=== PATIENT | female | born 1930 | race Caucasian/White ===

== ENCOUNTER 2017-05-28 23:39 | Inpatient (IN) | payer MEDICARE, MEDICAID ==
[2017-05-28] MEDS ORDERED: ACETAMINOPHEN 650 MG SUPP.RECT PR ONE (23:53)
--- NOTE | 2017-05-28 23:54 | ER Document Report ---
ED General - General Chief Complaint: Fever Stated Complaint: ALTERED MENTAL STATUS Time Seen by Provider: 05/28/17 23:46 Notes: Patient is an 87-year-old female comes emergency department by EMS for chief complaint of fever and altered mental status. Family reported to EMS the patient also vomited once this afternoon but she had not been complaining of anything becoming confused. Temperature 103.5, EMS unable to give anything in route. EMS reports patient will move all limbs spontaneously and speak but she is confused and she does not follow commands. Past medical history of insulin- dependent diabetes, hypertension, GERD, hysterectomy. She lives at home with nearby. She is a full code. TRAVEL OUTSIDE OF THE [place] IN LAST 30 DAYS: No Past Medical History - General Information source: Emergency Med Personnel - Social History Smoking Status: Never Smoker Frequency of alcohol use: None Drug Abuse: None Lives with: Alone - Family rotates staying with her Family History: Hypertension - Past Medical History Cardiac Medical History: Reports: Hx Hypertension Endocrine Medical History: Reports: Hx Diabetes Mellitus Type 1 Past Surgical History: Reports: Hx Gynecologic Surgery - cysts removed., Hx Hysterectomy - Immunizations Hx Diphtheria, Pertussis, Tetanus Vaccination: No Review of Systems - Review of Systems Constitutional: See HPI EENT: No symptoms reported Cardiovascular: No symptoms reported Respiratory: No symptoms reported Gastrointestinal: See HPI Genitourinary: No symptoms reported Female Genitourinary: No symptoms reported Musculoskeletal: No symptoms reported Skin: No symptoms reported Hematologic/Lymphatic: No symptoms reported Neurological/Psychological: No symptoms reported Physical Exam - Vital signs Vitals: Pulse Resp BP Pulse Ox 90 30 H 160/100 H 97 05/28/17 23:45 05/28/17 23:45 05/28/17 23:45 05/28/17 23:45 Interpretation: Normal - General General appearance: Other - Patient will tell me her name but will not answer any other questions or follow directions, she appears confused although she is awake, she is flushed and appears ill - HEENT Head: Normocephalic, Atraumatic Eyes: Normal Conjunctiva: Normal Extraocular movements intact: Yes - Normal spontaneous movements Eyelashes: Normal Pupils: PERRL Neck: Normal - Moves neck in full range of motion spontaneously - Respiratory Respiratory status: No respiratory distress, Tachypnea. No: Labored Chest status: Nontender Breath sounds: Decreased air movement, Other - Rales and rhonchi, louder on the right, there are also decreased breath sounds on the right. No: Wheezing Chest palpation: Normal - Cardiovascular Rhythm: Regular. No: Tachycardia Heart sounds: Normal auscultation, S1 appreciated, S2 appreciated Murmur: No - Abdominal Inspection: Normal Distension: No distension Bowel sounds: Normal Tenderness: Nontender. No: Tender, Guarding - Back Back: Normal, Nontender - Extremities General upper extremity: Normal inspection, Nontender, Normal color, Normal ROM , Normal temperature General lower extremity: Normal inspection, Nontender, Normal color, Normal ROM , Normal temperature, Normal weight bearing. No: Noemí's sign - Neurological Cognition: Confused Orientation: Disoriented to place, Disoriented to time, Disoriented to events. No: Disoriented to person Mary Coma Scale Eye Opening: Spontaneous Mary Coma Scale Verbal: Confused Mary Coma Scale Motor: Obeys Commands Mary Coma Scale Total: 14 Cranial nerves: No: Facial palsy, Forehead sparing, Gaze palsy Motor strength normal: LUE, RUE, LLE, RLE Sensory: Normal - Psychological Associated symptoms: Normal affect, Normal mood - Skin Skin Temperature: Warm Skin Moisture: Dry Skin Color: Normal Course - Re-evaluation Re-evalutation: On initial examination patient is flushed, confused, spontaneously moving all extremities, attempting her airway, she has a soft abdomen, she has Rales and rhonchi on lung exam, decreased breath sounds and increased rales and rhonchi on the right side suggestive of pneumonia. Patient with slightly low oxygen saturations on room air, placed on 3 L nasal cannula and she is averaging at about 95% now. Patient is ill at this time, she will be closely monitored. Starting on broad-spectrum coverage antibiotics of Zosyn and vancomycin. GCS of 13. Family members report a cough that won't go away. They states she vomited once but they did not notice any other symptoms. On repeat examination, patient is now mentating much better, she is able to tell me her name, she is able to tell me where she is, she states that she does not have any pain anywhere including a headache. CAT scan of the head unremarkable. CBC shows leukocytosis at 20,000 with 2% bands. Elevation of neutrophils. Chest x-ray read as normal but clinically I suspect patient has pneumonia. Blood cultures pending. Lactic acid is not elevated. Patient's blood pressure , heart rate, and oxygen have remained stable. Evaluated at bedside again, patient continues to appear improved. Patient is a full code. Family members are very anxious about her status, they asked many questions at bedside which were answered. Discussed with Dr. Patton. Discussed with Dr. Becerril, internal medicine, he will admit to the [facility]. Patient and family very agreeable with this. - Vital Signs Vital signs: Temp Pulse Resp BP Pulse Ox 101.8 F H 90 11 L 141/44 H 95 05/29/17 01:52 05/28/17 23:45 05/29/17 01:01 05/29/17 01:01 05/29/17 01:01 - Laboratory Result Diagrams: 05/29/17 00:13 05/29/17 00:13 Laboratory results interpreted by me: 05/29/17 05/29/17 05/29/17 00:13 00:13 00:31 WBC 20.0 H Hgb 11.2 L Hct 33.3 L RDW 14.7 H Seg Neuts % (Manual) 84 H Band Neutrophils % 2 L Lymphocytes % (Manual) 9 L Abs Neuts (Manual) 17.2 H Sodium 136.9 L BUN 32 H Est GFR ( Amer) 54 L Est GFR (Non-Af Amer) 45 L Glucose 230 H Direct Bilirubin 0.5 H Urine Protein 100 H Urine Glucose (UA) 50 H Critical Care Note - Critical Care Note Total time excluding time spent on procedures (mins): 35 - Altered mental status , fever, pneumonia Comments: Please allow 35 minutes of critical care time for treatment of patient with altered mental status, fever, pneumonia, requiring multiple re-evaluations, treatment with oxygen, antipyretics, antibiotics, discussions with family members, consultation and admission to the hospital. Discharge - Discharge Clinical Impression: Cough Fever Qualifiers: Fever type: unspecified Qualified Code(s): R50.9 - Fever, unspecified Leukocytosis Qualifiers: Leukocytosis type: unspecified Qualified Code(s): D72.829 - Elevated white blood cell count, unspecified Altered mental status Qualifiers: Altered mental status type: unspecified Qualified Code(s): R41.82 - Altered mental status, unspecified Condition: Stable Disposition: ADMITTED INPATIENT Admitting Provider: Hospitalist Unit Admitted: [facility]
[2017-05-29] MEDS ORDERED: VANCOMYCIN HCL INJ 1000 MG VIAL IV ONE (00:20)
[2017-05-29] MEDS ORDERED: PIPERACILLIN/TAZOBACTAM 3.375 GM VIAL IV ONE (00:20)
[2017-05-29 00:29] LABS: VENOUS BLOOD BASE EXCESS -0.3 mmol/L; VENOUS BLOOD HCO3 24.9 mmol/L (20-32); VENOUS BLOOD PCO2 42.5 mmHg (35-63); VENOUS BLOOD PH 7.39 (7.30-7.42)
[2017-05-29 00:36] LABS: RED CELL DISTRIBUTION WIDTH 14.7 % (11.5-14.0)
[2017-05-29 00:39] LABS: PROTHROMBIN TIME 13.1 SEC (11.4-15.4)
[2017-05-29 00:44] LABS: HEMATOCRIT 33.3 % (36.0-47.0); HEMOGLOBIN 11.2 g/dL (12.0-15.5); HGB HCT DIFFERENCE 0.3; MEAN CORPUSCULAR HEMOGLOBIN 28.6 pg (27.0-33.4); MEAN CORPUSCULAR HGB CONC 33.6 g/dL (32.0-36.0); MEAN CORPUSCULAR VOLUME 85 fl (80-97); RED BLOOD COUNT 3.91 10^6/uL (3.72-5.28)
[2017-05-29 00:47] LABS: ALANINE AMINOTRANSFERASE 23 U/L (9-52); ALBUMIN 4.3 g/dL (3.5-5.0); ALKALINE PHOSPHATASE 71 U/L (38-126); ANION GAP 14 (5-19); ASPARTATE AMINO TRANSFERASE 31 U/L (14-36); BILIRUBIN,DIRECT 0.5 mg/dL (0.0-0.4); BILIRUBIN,TOTAL 0.8 mg/dL (0.2-1.3); BLOOD UREA NITROGEN 32 mg/dL (7-20); CALCIUM 9.4 mg/dL (8.4-10.2); CARBON DIOXIDE 23 mmol/L (22-30); CHLORIDE 100 mmol/L (98-107); CREATININE RESULT 1.14 mg/dL (0.52-1.25); GLUCOSE 230 mg/dL (75-110); POTASSIUM 4.6 mmol/L (3.6-5.0); SODIUM 136.9 mmol/L (137-145); TOTAL PROTEIN 7.5 g/dL (6.3-8.2)
[2017-05-29 01:04] LABS: BAND NEUTROPHILS % (MANUAL) 2 % (3-5); BASOPHILS % (MANUAL) 0 % (0-2); EOSINOPHILS % (MANUAL) 0 % (0-6); LYMPHOCYTES % (MANUAL) 9 % (13-45); TOTAL CELLS COUNTED 100
[2017-05-29 01:05] LABS: ANISOCYTOSIS SLIGHT; OVALOCYTES SLIGHT; POIKILOCYTOSIS SLIGHT; TEAR DROP CELLS SLIGHT; TOXIC GRANULATION 1+
--- NOTE | 2017-05-29 01:10 | RADIOLOGY REPORT (SQ) ---
EXAM DESCRIPTION: CT HEAD WITHOUT COMPLETED DATE/TIME: 05/29/2017 12:49 am REASON FOR STUDY: altered mental status COMPARISON: 01/02/2013. TECHNIQUE: Axial images acquired through the brain without intravenous contrast. Images reviewed wi th bone, brain and subdural windows. Images stored on PACS. All CT scanners at this facility use dose modulation, iterative reconstruction, and/or weight based d osing when appropriate to reduce radiation dose to as low as reasonably achievable (ALARA). [facility]: Dose Right [facility]: CareDose [facility]: Dose Right [facility]: Teradose 4D [facility]: Smart Technologies RADIATION DOSE: Up-to-date CT equipment and radiation dose reduction techniques were employed. CTDIv ol: 55.2 mGy. DLP: 1084 mGy-cm. mGy. LIMITATIONS: None. FINDINGS: VENTRICLES: Normal size and contour. CEREBRUM: No masses. No hemorrhage. No midline shift. No evidence for acute infarction. Normal gra y/white matter differentiation. Mild white matter microangiopathy. Mild cerebral volume loss. CEREBELLUM: No masses. No hemorrhage. No alteration of density. No evidence for acute infarction. EXTRAAXIAL SPACES: No fluid collections. No masses. ORBITS AND GLOBE: No intra- or extraconal masses. Normal contour of globe without masses. CALVARIUM: No fracture. PARANASAL SINUSES: No fluid or mucosal thickening. SOFT TISSUES: No mass or hematoma. OTHER: No other significant finding. IMPRESSION: No acute findings. EVIDENCE OF ACUTE STROKE: NO. COMMENT: Quality ID # [id number]: Final reports with documentation of one or more dose reduction techniques (e.g., Automated exposure control, adjustment of the mA and/or kV according to patient size, use of iterative reconstruction technique) TECHNICAL DOCUMENTATION: JOB ID: [id number] [employer]- All Rights Reserved
[2017-05-29 01:11] LABS: APPEARANCE,URINE CLEAR; BILIRUBIN,URINE NEGATIVE (NEGATIVE); GLUCOSE, URINE 50 mg/dL (NEGATIVE); KETONES,URINE NEGATIVE (NEGATIVE); LEUKOCYTE ESTERASE,URINE NEGATIVE (NEGATIVE); NITRITE,URINE NEGATIVE (NEGATIVE); PROTEIN,URINE 100 mg/dL (NEGATIVE); UROBILINOGEN,URINE NEGATIVE mg/dL (<2.0)
--- NOTE | 2017-05-29 01:53 | RADIOLOGY REPORT (SQ) ---
EXAM DESCRIPTION: CHEST SINGLE VIEW COMPLETED DATE/TIME: 05/29/2017 12:52 am REASON FOR STUDY: AMS, fever, rales on exam COMPARISON: 03/19/2016. EXAM PARAMETERS: NUMBER OF VIEWS: One view. TECHNIQUE: Single frontal radiographic view of the chest acquired. RADIATION DOSE: NA LIMITATIONS: None. FINDINGS: LUNGS AND PLEURA: Mild interstitial markings. MEDIASTINUM AND HILAR STRUCTURES: No masses. Contour normal. HEART AND VASCULAR STRUCTURES: Heart normal in size. Small atherosclerosis. BONES: No acute findings. [id number] osteoarthritis. HARDWARE: None in the chest. OTHER: No other significant finding. IMPRESSION: No acute cardiopulmonary findings. TECHNICAL DOCUMENTATION: JOB ID: [id number]
[2017-05-29] MEDS ORDERED: GLUCAGON,HUMAN RECOMB 1 MG INJ IM PRN (04:16)
[2017-05-29] MEDS ORDERED: DEXTROSE 50%-WATER 25 GM/50 ML DISP.SYRIN IV PRN ×2 (04:16)
[2017-05-29] MEDS ORDERED: DEXTROSE 40% GEL 15 GM TUBE PO PRN ×2 (04:16)
[2017-05-29] MEDS ORDERED: PROMETHAZINE HCL 25 MG TABLET PO PRN (04:19)
[2017-05-29] MEDS ORDERED: ACETAMINOPHEN 325 MG TABLET PO PRN (04:19)
[2017-05-29] MEDS ORDERED: NORMAL SALINE 1000 ML 500 ML IV PRN (04:21)
[2017-05-29] MEDS ORDERED: IPRATROPIUM/ALBUTEROL 0.5-2.5 MG/3 ML AMPUL NEB PRN (04:21)
[2017-05-29] MEDS ORDERED: PHARMACY COMMUNICATION ORDER MC SCH (04:30)
[2017-05-29] MEDS ORDERED: VANCOMYCIN HCL 0 MG in DEXTROSE 5%-WATER 250 ML IV NR (04:30)
--- NOTE | 2017-05-29 04:42 | PDOC H&P ---
History of Present Illness Admission Date/PCP: 05/29/17 02:23 Edd Patient complains of: Fever confusion History of Present Illness: MERCEDES ZAPATA is a 87 year old female with underlying type 2 diabetes mellitus and hypertension, quite mentally and physically active, living alone, but with close family support, brought to the emergency room by EMS at the request of family for above issues. Patient has been discussed with emergency room physician who evaluated the patient. Patient is globally disoriented and is able to provide no history whatsoever in terms of acute or chronic events, review of systems, personal habits, family history, etc. daughter and son-in-law are present, and are quite helpful and informative. No old inpatient records available for review. Patient was in her usual state of both mental and physical health Thursday evening. However, during the day on the , she was noted to have single episode of vomiting, along with associated confusion. EMS was called; temperature 103.5 on arrival. Upon arrival in our emergency room, patient had the overall appearance of being significantly ill. She has improved quite a bit with treatment so far, including antibiotics, but is still not back to baseline, according to family. Initial thoughts were for possible pneumonia, due to somewhat coarse breath sounds on physical exam. However, discussion with family revealed patient carries a diagnosis of chronic bronchitis, and has been to see a number of pulmonologists related to same. Her apparently was a smoker. Patient herself does not use tobacco, alcohol, or illicit drugs. Examination did reveal subtle but still present cellulitis involving the lower half of her right lower extremity, primarily anteriorly and laterally. Patient denies any knowledge of trauma to the area. She is noted to have mild edema of the lower half of the right lower extremity, including distal calf and forte, along with ankle and foot. Family states that she does occasionally have mild swelling of her lower extremities. Dictation via voice recognition software. Laboratory results are listed in [facility] and are reviewed. X-ray summary results are listed below, with full report(s) reviewed. . EKG reviewed and compared to prior tracing from 19 March of last year. Social history/personal habits: . Lives alone. Quite mentally and physically active. Retired. Personal habits as noted above. Allergies/adverse reactions are listed in [facility] and are reviewed. Family not certain if she has ever taken morphine, Percocet or oxycodone. Home medications initially autopopulated into [id number] may not accurately reflect patient's true medications, dosages, and/or frequencies. electronic service technician to reconcile medications. Bottle review performed. REVIEW OF SYSTEMS: See history and present illness. No further information available this point in time. PHYSICAL EXAMINATION: 79.4 kg. Height is not recorded on the chart. Blood pressure 123/49. Pulse 69 and regular. 98% saturation on room air. Respirations are 22 and unlabored. Temperature 101.8. Slightly overweight otherwise well-nourished well-developed female appearing approximately her stated age. Initially asleep, but does awaken fairly easily. Somewhat fatigued appearance. Daughter and son-in-law are present at her side. Skin is warm and dry. No grossly obvious evidence of rash in areas of skin examined. No subcutaneous nodules palpated. See comments under "extremities" below. ENT: Perhaps mildly hard of hearing to normal conversation. Tongue midline on protrusion pink and slightly tacky. Eyes: No scleral icterus. Pupils equal and reactive to light at 4 mm. [place] conjunctivae. No raccoon eyes. Neck is supple and nontender to gentle active range of motion and palpation. Midline trachea. No palpable thyroid nodule mass enlargement or tenderness. Lymphatic: No palpable cervical or clavicular nodes. Neck and lymphatic exams limited by patient body habitus. Psychiatric: Difficult to evaluate due to her current mental status. Does not answer all questions. Slowly looking about the room, but rarely speaks. Lungs: Auscultation reveals equal breath sounds bilaterally. No use of accessory respiratory muscles. Faint coarse breath sounds in the right base. Cardiovascular: Heart regular rate and rhythm, without gallop murmur or rub. No carotid or abdominal aortic bruits. No left ankle or pedal edema. Faintly palpable dorsalis pedis pulses. Abdomen:soft slightly distended nontender with positive bowel sounds. Unable to adequately evaluate abdomen for masses or organomegaly due to distention. Extremities: Feet are warm and dry. No calf tenderness to compression. No grossly obvious visual evidence of left calf swelling. Gentle manipulation of lower extremities fails to reveal any obvious evidence of injury or instability to knees hips or ankles. Examination of the right lower extremity reveals mild slightly pitting edema involving the lower third of the right lower extremity extending onto the ankle and dorsum of the foot. This area is also involved with mild inflammation and warmth. No tenderness. No crepitus fluctuance or expressible discharge. No specific skin entrance site. Neurologic: Patellar reflexes absent. Absent Babinski. Light touch cannot be adequately evaluated due to her current mental status.. Dorsiflexion and plantarflexion of feet 5 / 5 and symmetric. Past Medical History Cardiac Medical History: Reports: Hypertension Denies: Atrial Fibrillation, Congestive Heart Failure, Coronary Artery Disease, DVT, Myocardial Infarction, Hyperlipidema, Pulmonary Embolism Pulmonary Medical History: Reports: Bronchitis - Chronic Denies: Asthma, Chronic Obstructive Pulmonary Disease (COPD), Sleep Apnea EENT Medical History: Reports: Eyes - Glasses Denies: Ears, Throat Neurological Medical History: Denies: Hemorrhagic CVA, Ischemic CVA, Seizures Endocrine Medical History: Reports: Diabetes Mellitus Type 2 Denies: Diabetes Mellitus Type 1, Hyperthyroidism, Hypothyroidism Malignancy Medical History: Reports: Other - Uterine cancer status post hysterectomy many years ago. GI Medical History: Denies: Cirrhosis, Gastroesophageal Reflux Disease, Hepatitis, Peptic Ulcer Disease Musculoskeltal Medical History: Denies: Arthritis Skin Medical History: Reports: None Psychiatric Medical History: Denies: Depression, General Anxiety Disorder, Substance Abuse, Tobacco Dependency Hematology: Reports: None Infectious Medical History: Denies: Clostridium Difficile, Hepatitis B, Hepatitis C, Methicillin- Resistant Staph Aureus Past Surgical History Past Surgical History: Reports: Herniorrhaphy, Hysterectomy Social History Information Source: Relative - Daughter, Emergency Med Personnel, [facility] Records Lives with: Alone - Family rotates staying with her Smoking Status: Never Smoker Frequency of Alcohol Use: None Drugs: None - Advance Directive Resuscitation Status: Full Code Surrogate healthcare decision maker:: Daughter or son Family History Family History: Hypertension Parental Family History Reviewed: Yes - Uncertain cause of mother's ; father may have of seizure. Children Family History Reviewed: Yes - Healthy Sibling(s) Family History Reviewed.: Yes - Several surviving siblings; uncertain health status Medication/Allergy Home Medications: RX: Olmesartan/Hydrochlorothiazide [Olmesartan-Hctz 40-25 mg Tab] 1 tab PO DAILY 05/29/17 RX: Sitagliptin Phosphate [Januvia 50 mg Tablet] 50 mg PO DAILY 05/29/17 Levofloxacin [Levaquin 750 mg Tablet] 750 mg PO Q48H #7 tab 05/31/17 RX: Meloxicam [Mobic] 7.5 mg PO DAILY PRN #0 05/31/17 Allergies/Adverse Reactions: codeine Adverse Reaction (Intermediate, Verified 05/29/17 03:22) Nausea Physical Exam Vital Signs: Temp Pulse Resp BP Pulse Ox 101.8 F H 68 22 H 112/58 L 98 05/29/17 04:02 05/29/17 04:02 05/29/17 04:02 05/29/17 04:02 05/29/17 04:02 Results Impressions: Chest X-Ray 05/28/17 23:52 IMPRESSION: No acute cardiopulmonary findings. Head CT 05/28/17 23:53 IMPRESSION: No acute findings. EVIDENCE OF ACUTE STROKE: NO. Assessment & Plan - Diagnosis (1) Acute encephalopathy Is this a current diagnosis for this admission?: Yes Plan: Should clear with time and treatment of her infection. (2) Cellulitis of right lower leg Is this a current diagnosis for this admission?: Yes Plan: Ancef and intravenous vancomycin; pharmacy to assist with dosing. Elevate lower extremities. I have strongly encouraged patient not to get out of bed without notifying staff , to avoid a fall with injury. Knee high SCD, left lower extremity only, for DVT prophylaxis, along with subcutaneous heparin. Daughter and son-in-law understand confusion may worsen while in the hospital. Impression and plans were discussed with daughter and son-in-law, both of whom concur. Time spent in evaluation and management of patient: 76 minutes. (3) CKD (chronic kidney disease) stage 3, GFR 30-59 ml/min Is this a current diagnosis for this admission?: Yes (4) Diabetes mellitus type 2 in obese Is this a current diagnosis for this admission?: Yes (5) HTN (hypertension) Qualifiers: Hypertension type: essential hypertension Qualified Code(s): I10 - Essential (primary) hypertension Is this a current diagnosis for this admission?: Yes Plan: Resume home medications as appropriate once these have been determined and reviewed. - Time Time Spent: Greater than 70 Minutes Anticipated discharge: Home Within: Other - Inpatient Certification Based on my medical assessment, after consideration of the patient's comorbidities, presenting symptoms, or acuity I expect that the services needed warrant INPATIENT care.: Yes I certify that my determination is in accordance with my understanding of Medicare's requirements for reasonable and necessary INPATIENT services [42 CFR 412.3e].: Yes Medical Necessity: Need Close Monitoring Due to Risk of Patient Decompensation, Need for IV Antibiotics, Risk of Complication if Not Cared For in Hospital Post Hospital Care: D/C or Transfer Summary
[2017-05-29] MEDS ORDERED: CEFAZOLIN 1 GM/D5W RTU 1 GM/50 ML RTUPB IV ONE (05:00)
[2017-05-29] MEDS ORDERED: CEFAZOLIN 1 GM/D5W RTU 1 GM/50 ML RTUPB IV SCH ×2 (06:00→14:00)
--- NOTE | 2017-05-29 07:18 | EKG REPORT ---
SEVERITY:- ABNORMAL ECG - ACCELERATED JUNCTIONAL RHYTHM RBBB AND LPFB : Confirmed by: Deepak Putnam MD 29-May-2017 07:18:05
[2017-05-29 07:46] LABS: HEMATOCRIT 29.8 % (36.0-47.0); HEMOGLOBIN 10.1 g/dL (12.0-15.5); HGB HCT DIFFERENCE 0.5; MEAN CORPUSCULAR HEMOGLOBIN 28.8 pg (27.0-33.4); MEAN CORPUSCULAR HGB CONC 33.8 g/dL (32.0-36.0); MEAN CORPUSCULAR VOLUME 85 fl (80-97); RED BLOOD COUNT 3.49 10^6/uL (3.72-5.28); RED CELL DISTRIBUTION WIDTH 14.9 % (11.5-14.0); WHITE BLOOD COUNT 27.1 10^3/uL (4.0-10.5)
[2017-05-29 08:02] LABS: ANION GAP 16 (5-19); BLOOD UREA NITROGEN 33 mg/dL (7-20); CARBON DIOXIDE 22 mmol/L (22-30); CHLORIDE 99 mmol/L (98-107); CREATININE RESULT 1.42 mg/dL (0.52-1.25); GLUCOSE 183 mg/dL (75-110); POTASSIUM 4.4 mmol/L (3.6-5.0); SODIUM 137.2 mmol/L (137-145)
[2017-05-29 08:20] LABS: BAND NEUTROPHILS % (MANUAL) 8 % (3-5); BASOPHILS % (MANUAL) 0 % (0-2); EOSINOPHILS % (MANUAL) 0 % (0-6)
[2017-05-29 08:22] LABS: LYMPHOCYTES % (MANUAL) 1 % (13-45); TOTAL CELLS COUNTED 100
[2017-05-29 09:17] LABS: OVALOCYTES 1+; PLATELET CLUMPS PRESENT; POLYCHROMASIA SLIGHT; TEAR DROP CELLS SLIGHT; TOXIC GRANULATION SLIGHT
[2017-05-29 09:18] LABS: ANISOCYTOSIS SLIGHT; POIKILOCYTOSIS 1+; ROULEAUX SLIGHT; STOMATOCYTES SLIGHT
[2017-05-29] MEDS ORDERED: NORMAL SALINE 1000 ML 1,000 ML IV PRN (10:24)
[2017-05-29] MEDS ORDERED: IMIPENEM/CILASTATIN SODIUM INJ 500 MG VIAL IV SCH (10:30)
--- NOTE | 2017-05-29 11:45 | RADIOLOGY REPORT (SQ) ---
EXAM DESCRIPTION: KUB/ABDOMEN (SINGLE VIEW) COMPLETED DATE/TIME: 05/29/2017 11:00 am REASON FOR STUDY: nausea and vomiting COMPARISON: CT abdomen and pelvis 01/02/2013 NUMBER OF VIEWS: One view. TECHNIQUE: Supine radiographic image of the abdomen acquired. LIMITATIONS: None. FINDINGS: BOWEL GAS PATTERN: Moderate stool in the descending colon. Otherwise unremarkable bowel g as pattern. Stomach decompressed CALCIFICATIONS: No suspicious calcifications. SOFT TISSUES: No gross mass or suggestion of organomegaly. HARDWARE: Old very umbilical anterior abdominal wall surgical kayode. Surgical clips just ventral t o the iliac bifurcation. BONES: Osteoporotic with diffuse degenerative change. OTHER: No other significant finding. IMPRESSION: Grossly nonobstructive bowel gas pattern. Moderate stool in the descending colon. TECHNICAL DOCUMENTATION: JOB ID: [id number] [employer]- All Rights Reserved
[2017-05-29] MEDS ORDERED: IMIPENEM IV SCH (12:00)
[2017-05-29] MEDS ORDERED: CILASTATIN SODIUM IV SCH (12:00)
[2017-05-29] MEDS ORDERED: NORMAL SALINE IV SCH (12:00)
[2017-05-29] MEDS: HEPARIN SOD (PORCINE) 5,000 UNIT/ML 1 ML SYRINGE SUBCUT SCH ×2 (12:41→21:44)
[2017-05-29] MEDS: DOCUSATE SODIUM 100 MG CAPSULE PO SCH ×2 (12:44→17:58)
[2017-05-29] MEDS: IMIPENEM IV SCH ×2 (12:47→17:58)
[2017-05-29] MEDS: CILASTATIN SODIUM IV SCH ×2 (12:47→17:58)
[2017-05-29] MEDS: DEXTROSE 5% IV SCH ×2 (12:47→17:58)
[2017-05-29] MEDS: WATER IV SCH ×2 (12:47→17:58)
[2017-05-30] MEDS: CILASTATIN SODIUM IV SCH ×4 (00:36→17:28)
[2017-05-30] MEDS: DEXTROSE 5% IV SCH ×4 (00:36→17:28)
[2017-05-30] MEDS: WATER IV SCH ×4 (00:36→17:28)
[2017-05-30] MEDS: IMIPENEM IV SCH ×4 (00:36→17:28)
[2017-05-30] MEDS: INSULIN LISPRO 100 UNIT/ML 3 ML VIAL SUBCUT PRN ×4 (01:08→22:43)
[2017-05-30 06:44] LABS: HEMATOCRIT 28.5 % (36.0-47.0); HEMOGLOBIN 9.5 g/dL (12.0-15.5); MEAN CORPUSCULAR HEMOGLOBIN 28.7 pg (27.0-33.4); MEAN CORPUSCULAR HGB CONC 33.4 g/dL (32.0-36.0); MEAN CORPUSCULAR VOLUME 86 fl (80-97); RED BLOOD COUNT 3.32 10^6/uL (3.72-5.28); RED CELL DISTRIBUTION WIDTH 15.1 % (11.5-14.0); WHITE BLOOD COUNT 14.1 10^3/uL (4.0-10.5)
[2017-05-30 06:55] LABS: ANION GAP 8 (5-19); BLOOD UREA NITROGEN 32 mg/dL (7-20); CALCIUM 8.6 mg/dL (8.4-10.2); CARBON DIOXIDE 25 mmol/L (22-30); CHLORIDE 105 mmol/L (98-107); CREATININE RESULT 1.37 mg/dL (0.52-1.25); GLUCOSE 147 mg/dL (75-110); SODIUM 137.9 mmol/L (137-145)
[2017-05-30] MEDS: HEPARIN SOD (PORCINE) 5,000 UNIT/ML 1 ML SYRINGE SUBCUT SCH ×2 (09:18→22:43)
[2017-05-30] MEDS: DOCUSATE SODIUM 100 MG CAPSULE PO SCH ×2 (09:18→17:28)
[2017-05-30] MEDS: SITAGLIPTIN PHOSPHATE 50 MG TABLET PO SCH (09:18)
[2017-05-30] MEDS ORDERED: NORMAL SALINE 1000 ML 1,000 ML IV PRN (14:09)
--- NOTE | 2017-05-30 14:15 | PDOC PROGRESS REPORT ---
Subjective Progress Note for:: 05/30/17 Subjective:: Family at bedside and reportedly mental status back to baseline. Patient denies any shortness of breath, no cough or chest congestion, no chills or fever at this time. Lower extremity swelling on the right reportedly improved. No nausea or vomiting, no diarrhea. Abdominal x-ray looks once the patient. Physical Exam Vital Signs: Temp Pulse Resp BP Pulse Ox 97.4 F 71 18 158/48 H 94 05/30/17 11:01 05/30/17 11:01 05/30/17 11:01 05/30/17 11:01 05/30/17 11:01 Intake & Output 05/29/17 05/30/17 05/31/17 06:59 06:59 06:59 Intake Total 200 2714 574 Output Total 0 1100 300 Balance 200 1614 274 Weight 77.1 kg 77.1 kg General appearance: PRESENT: no acute distress, cooperative Head exam: PRESENT: normocephalic Eye exam: PRESENT: EOMI Mouth exam: PRESENT: moist, neck supple Neck exam: ABSENT: JVD Respiratory exam: PRESENT: clear to auscultation adela. ABSENT: rhonchi, wheezes Cardiovascular exam: PRESENT: RRR. ABSENT: gallop GI/Abdominal exam: PRESENT: soft. ABSENT: distended, tenderness Extremities exam: PRESENT: other - Trace pretibial edema on the left, trace to + 1 edema on the right minimal redness Neurological exam: PRESENT: alert, awake, oriented to situation Skin exam: PRESENT: dry, warm. ABSENT: cyanosis Results Laboratory Results: 05/30/17 06:33 05/30/17 06:33 05/30/17 05/30/17 06:33 06:33 WBC 14.1 H RBC 3.32 L Hgb 9.5 L Hct 28.5 L MCV 86 MCH 28.7 MCHC 33.4 RDW 15.1 H Plt Count 213 Sodium 137.9 Potassium 4.0 Chloride 105 Carbon Dioxide 25 Anion Gap 8 BUN 32 H Creatinine 1.37 H Est GFR ( Amer) 44 L Est GFR (Non-Af Amer) 36 L Glucose 147 H Calcium 8.6 Impressions: Chest X-Ray 05/28/17 23:52 IMPRESSION: No acute cardiopulmonary findings. Head CT 05/28/17 23:53 IMPRESSION: No acute findings. EVIDENCE OF ACUTE STROKE: NO. KUB X-Ray 05/29/17 00:00 IMPRESSION: Grossly nonobstructive bowel gas pattern. Moderate stool in the descending colon. Assessment & Plan - Diagnosis (1) Altered mental status Qualifiers: Altered mental status type: unspecified Qualified Code(s): R41.82 - Altered mental status, unspecified Is this a current diagnosis for this admission?: Yes (2) Cellulitis of right lower leg Is this a current diagnosis for this admission?: Yes (3) Chronic bronchitis Qualifiers: Chronic bronchitis type: unspecified Qualified Code(s): J42 - Unspecified chronic bronchitis Is this a current diagnosis for this admission?: Yes (4) CKD (chronic kidney disease) stage 3, GFR 30-59 ml/min Is this a current diagnosis for this admission?: Yes (5) Diabetes mellitus type 2 in obese Is this a current diagnosis for this admission?: Yes (6) HTN (hypertension) Qualifiers: Hypertension type: essential hypertension Qualified Code(s): I10 - Essential (primary) hypertension Is this a current diagnosis for this admission?: Yes (7) Anemia of chronic disease Is this a current diagnosis for this admission?: Yes - Time Time Spent with patient: 25-34 minutes - Plan Summary Plan Summary: Antibiotic changed to Primaxin due to increasing creatinine. Continue current medication. Decrease IV fluids. Begin physical therapy. Continue supportive care.
[2017-05-30] MEDS ORDERED: POLYETHYLENE GLYCOL 3350 POWDER 17 GM/1 PACKET PO ONE (15:00)
[2017-05-31] MEDS: DEXTROSE 5% IV SCH ×3 (00:33→13:05)
[2017-05-31] MEDS: IMIPENEM IV SCH ×3 (00:33→13:05)
[2017-05-31] MEDS: CILASTATIN SODIUM IV SCH ×3 (00:33→13:05)
[2017-05-31] MEDS: WATER IV SCH ×3 (00:33→13:05)
[2017-05-31] MEDS: HEPARIN SOD (PORCINE) 5,000 UNIT/ML 1 ML SYRINGE SUBCUT SCH (09:30)
[2017-05-31] MEDS: SITAGLIPTIN PHOSPHATE 50 MG TABLET PO SCH (09:30)
[2017-05-31] MEDS: DOCUSATE SODIUM 100 MG CAPSULE PO SCH (09:31)
[2017-05-31] MEDS ORDERED: POLYETHYLENE GLYCOL 3350 POWDER 17 GM/1 PACKET PO SCH (10:00)
[2017-05-31 12:41] VITALS: BP 125/41
[2017-05-31] MEDS ORDERED: LEVOFLOXACIN 750 MG TABLET PO ONE (15:00)
--- NOTE | 2017-05-31 17:28 | PDOC DISCHARGE SUMMARY ---
General - Admit/Disc Date/PCP Admission Date/Primary Care Provider: 05/29/17 04:21 Discharge Date: 05/31/17 - Discharge Diagnosis (1) Altered mental status Is this a current diagnosis for this admission?: Yes (2) Cellulitis of right lower leg Is this a current diagnosis for this admission?: Yes (3) Chronic bronchitis Is this a current diagnosis for this admission?: Yes (4) CKD (chronic kidney disease) stage 3, GFR 30-59 ml/min Is this a current diagnosis for this admission?: Yes (5) Diabetes mellitus type 2 in obese Is this a current diagnosis for this admission?: Yes (6) HTN (hypertension) Is this a current diagnosis for this admission?: Yes (7) Anemia of chronic disease Is this a current diagnosis for this admission?: Yes - Additional Information Resuscitation Status: Full Code Discharge Diet: Cardiac, Diabetic Discharge Activity: Activity As Tolerated, Balance Activity w/Rest, Slowly Increase Activity Home Medications: Olmesartan/Hydrochlorothiazide [Olmesartan-Hctz 40-25 mg Tab] 1 tab PO DAILY Sitagliptin Phosphate [Januvia 50 mg Tablet] 50 mg PO DAILY 05/29/17 Levofloxacin [Levaquin 750 mg Tablet] 750 mg PO Q48H #7 tab 05/31/17 Meloxicam [Mobic] 7.5 mg PO DAILY PRN #0 05/31/17 Additional Information: Follow-up final report of culture outpatient with primary care physician. Return to the emergency room if symptoms recur. History of Present Illness Patient complains of: Change in mental status. History of Present Illness: MERCEDES ZAPATA is a 87 year old female with underlying type 2 diabetes mellitus and hypertension, quite mentally and physically active, living alone, but with close family support, brought to the emergency room by EMS at the request of family for above issues. Patient has been discussed with emergency room physician who evaluated the patient. Patient is globally disoriented and is able to provide no history whatsoever in terms of acute or chronic events, review of systems, personal habits, family history, etc. daughter and son-in-law are present, and are quite helpful and informative. No old inpatient records available for review. Patient was in her usual state of both mental and physical health Thursday evening. However, during the day on the 21st, she was noted to have single episode of vomiting, along with associated confusion. EMS was called; temperature 103.5 on arrival. Upon arrival in our emergency room, patient had the overall appearance of being significantly ill. She has improved quite a bit with treatment so far, including antibiotics, but is still not back to baseline, according to family. Initial thoughts were for possible pneumonia, due to somewhat coarse breath sounds on physical exam. However, discussion with family, patient carries a diagnosis of chronic bronchitis, and has been to see a number of product assembler related to same. Her apparently was a smoker. Patient herself does not use tobacco, alcohol, or illicit drugs. Examination did reveal subtle but still present cellulitis involving the lower half of her right lower extremity, primarily anteriorly and laterally. Patient denies any knowledge of trauma to the area. She is noted to have mild edema of the lower half of the right lower extremity, including distal calf and forte, along with ankle and foot. Family states that she does occasionally have mild swelling of her lower extremities. For details please refer to history and physical examination performed by the admitting physician. Hospital Course Hospital Course: The patient was admitted to telemetry. The patient was hydrated with intravenous fluids. Broad-spectrum antibiotic was started to cover for cellulitis. Patient had chronic bronchitis but no reported flareup of symptoms were noted. Blood culture was performed and grew group B Streptococcus. The patient subsequently improved after 48 hours of treatment. Patient was more awake and alert and able to respond. She was referred to physical therapy and was able to participate. No respiratory symptoms were reported nor any discomfort respiratory lopez were reported. Likely the underlying cause of infection is her cellulitis on the leg. She has a KUB that did not show any impaction. The rest of the hospital stays unremarkable. Patient was transitioned to oral Levaquin and eventually will was discharged home with above instructions. Home health was arranged for home physical therapy. Physical Exam Vital Signs: Temp Pulse Resp BP Pulse Ox 98.8 F 79 18 125/41 L 97 05/31/17 12:39 05/31/17 12:39 05/31/17 12:39 05/31/17 12:39 05/31/17 12:39 Intake & Output 05/30/17 05/31/17 06/01/17 06:59 06:59 06:59 Intake Total 2714 2924 600 Output Total 1100 1000 400 Balance 1614 1924 200 Weight 77.1 kg 81.4 kg General appearance: PRESENT: no acute distress, cooperative Head exam: PRESENT: normocephalic Eye exam: PRESENT: EOMI Mouth exam: PRESENT: moist, neck supple Neck exam: ABSENT: JVD Respiratory exam: PRESENT: clear to auscultation adela. ABSENT: rhonchi, wheezes Cardiovascular exam: PRESENT: RRR. ABSENT: gallop GI/Abdominal exam: PRESENT: soft. ABSENT: distended, tenderness Extremities exam: ABSENT: pedal edema Neurological exam: PRESENT: alert, awake, oriented to situation Skin exam: PRESENT: dry, warm. ABSENT: cyanosis Results Laboratory Results: 05/30/17 06:33 05/30/17 06:33 Impressions: Chest X-Ray 05/28/17 23:52 IMPRESSION: No acute cardiopulmonary findings. Head CT 05/28/17 23:53 IMPRESSION: No acute findings. EVIDENCE OF ACUTE STROKE: NO. KUB X-Ray 05/29/17 00:00 IMPRESSION: Grossly nonobstructive bowel gas pattern. Moderate stool in the descending colon. Qualifiers PATEINT BEING DISCHARGED WITH ANY OF THE FOLLOWING DIAGNOSIS?: No Plan Discharge Plan: Follow-up with primary care physician in 1 week. Time Spent: Less than 30 Minutes
[2017-05-31] MEDS ORDERED: IMIPENEM/CILASTATIN SODIUM 250 MG in NORMAL SALINE 100 ML IV SCH (18:00)
[2017-05-31] MEDS ORDERED: NORMAL SALINE IV SCH (18:00)
[2017-05-31] MEDS ORDERED: CILASTATIN SODIUM IV SCH (18:00)
[2017-05-31] MEDS ORDERED: IMIPENEM IV SCH (18:00)
== END 2017-05-31 14:30 | disposition home health service (06) | DRG 602 ==
LOC: ER 23:39 → EH 05-29 02:23 → UNDOADMIN 05-29 02:23 → EH 05-29 04:21 → 3S 05-29 04:42 → EH 05-29 04:42
PROVIDERS: ADMIT Family Medicine; ATTEND Family Medicine
DX: L03.115 Cellulitis of right lower limb (principal); G93.40 Encephalopathy, unspecified; I12.9 Hypertensive chronic kidney disease with stage 1 through stage 4 chronic kidney disease, or unspecified chronic kidney disease; N18.3 Chronic kidney disease, stage 3 (moderate); B95.1 Streptococcus, group B, as the cause of diseases classified elsewhere; E11.22 Type 2 diabetes mellitus with diabetic chronic kidney disease; K21.9 Gastro-esophageal reflux disease without esophagitis; J42 Unspecified chronic bronchitis; G47.30 Sleep apnea, unspecified; Z77.22 Contact with and (suspected) exposure to environmental tobacco smoke (acute) (chronic); E66.9 Obesity, unspecified; D64.9 Anemia, unspecified; Z79.4 Long term (current) use of insulin; Z90.710 Acquired absence of both cervix and uterus; Z82.49 Family history of ischemic heart disease and other diseases of the circulatory system; Z88.6 Allergy status to analgesic agent; Z85.42 Personal history of malignant neoplasm of other parts of uterus
CPT/HCPCS: 36415; 51701; 70450; 71010; 74000; 80048; 80053; 81001; 82803; 82962; 83605; 83735; 85025; 85027; 85610; 87040; 87077; 87086; 87186; 93005; 93010; 96365; 96375; 99291; G8978-GP; G8979-GP; J0690; J0743; J1644; J1815; J2543; J3370; J3490; J7030

== ENCOUNTER 2017-09-30 07:54 | Inpatient (IN) | payer MEDICARE, MEDICAID ==
[2017-09-30] MEDS ORDERED: NORMAL SALINE 1000 ML 1,000 ML IV ONE (08:13)
[2017-09-30] MEDS ORDERED: ONDANSETRON HCL INJ/PF 4 MG/2 ML SDV IV ONE (08:14)
[2017-09-30] MEDS ORDERED: IPRATROPIUM/ALBUTEROL 0.5-2.5 MG/3 ML AMPUL NEB ONE (08:27)
--- NOTE | 2017-09-30 08:48 | EKG REPORT ---
SEVERITY:- ABNORMAL ECG - SINUS TACHYCARDIA RIGHT BUNDLE BRANCH BLOCK : Confirmed by: Domonique Iqbal MD 30-Sep-2017 08:47:47
[2017-09-30 09:16] LABS: HEMOGLOBIN 11.1 g/dL (12.0-15.5); MEAN CORPUSCULAR HEMOGLOBIN 28.9 pg (27.0-33.4); MEAN CORPUSCULAR HGB CONC 33.5 g/dL (32.0-36.0); MEAN CORPUSCULAR VOLUME 86 fl (80-97); PLATELET COUNT 310 10^3/uL (150-450); RED BLOOD COUNT 3.84 10^6/uL (3.72-5.28); RED CELL DISTRIBUTION WIDTH 14.9 % (11.5-14.0); WHITE BLOOD COUNT 18.6 10^3/uL (4.0-10.5)
[2017-09-30 09:17] LABS: VENOUS BLOOD BASE EXCESS 0.3 mmol/L; VENOUS BLOOD HCO3 24.5 mmol/L (20-32); VENOUS BLOOD PCO2 37.8 mmHg (35-63); VENOUS BLOOD PH 7.43 (7.30-7.42)
[2017-09-30 09:22] LABS: INTERNATIONAL RATION (INR) 1.05; PROTHROMBIN TIME 14.5 SEC (11.4-15.4)
--- NOTE | 2017-09-30 09:30 | RADIOLOGY REPORT (SQ) ---
EXAM DESCRIPTION: CHEST SINGLE VIEW COMPLETED DATE/TIME: 09/30/2017 9:15 am REASON FOR STUDY: cough fever COMPARISON: 05/29/2017, 03/19/2016 chest films EXAM PARAMETERS: NUMBER OF VIEWS: One view. TECHNIQUE: Single frontal radiographic view of the chest acquired. RADIATION DOSE: NA LIMITATIONS: None. FINDINGS: LUNGS AND PLEURA: Patchy airspace disease right upper lobe worrisome for early or developi ng pneumonia. Left lung clear. No pleural effusions. No pneumothorax. MEDIASTINUM AND HILAR STRUCTURES: No masses. Contour normal. HEART AND VASCULAR STRUCTURES: Heart normal in size. Normal vasculature. BONES: No acute findings. HARDWARE: None in the chest. OTHER: No other significant finding. IMPRESSION: Minimal right upper lobe airspace disease worrisome for early or developing pneumonia. TECHNICAL DOCUMENTATION: JOB ID: [id number] [employer]- All Rights Reserved
[2017-09-30 09:35] LABS: ABSOLUTE LYMPHOCYTES# (MANUAL) 0.7 10^3/uL (0.5-4.7); ABSOLUTE MONOCYTES # (MANUAL) 1.1 10^3/uL (0.1-1.4); ABSOLUTE NEUTROPHILS# (MANUAL) 16.7 10^3/uL (1.7-8.2); BAND NEUTROPHILS % (MANUAL) 9 % (3-5); BASOPHILS % (MANUAL) 0 % (0-2); EOSINOPHILS % (MANUAL) 0 % (0-6); LYMPHOCYTES % (MANUAL) 4 % (13-45); MONOCYTES % (MANUAL) 6 % (3-13); SEGMENTED NEUTROPHILS % (MAN) 81 % (42-78); TOTAL CELLS COUNTED 100
[2017-09-30 09:36] LABS: ANISOCYTOSIS SLIGHT; OVALOCYTES SLIGHT; POIKILOCYTOSIS SLIGHT
[2017-09-30 09:37] LABS: PLATELET COMMENT ADEQUATE
[2017-09-30] MEDS ORDERED: LEVOFLOXACIN 500 MG/D5W RTU 500 MG/100 ML RTUPB IV ONE (09:39)
[2017-09-30 09:43] LABS: ALANINE AMINOTRANSFERASE 22 U/L (9-52); ALKALINE PHOSPHATASE 71 U/L (38-126); ANION GAP 14 (5-19); ASPARTATE AMINO TRANSFERASE 23 U/L (14-36); BILIRUBIN,DIRECT 0.3 mg/dL (0.0-0.4); BILIRUBIN,TOTAL 1.1 mg/dL (0.2-1.3); BLOOD UREA NITROGEN 29 mg/dL (7-20); CALCIUM 9.4 mg/dL (8.4-10.2); CARBON DIOXIDE 21 mmol/L (22-30); CHLORIDE 101 mmol/L (98-107); GLUCOSE 204 mg/dL (75-110); POTASSIUM 4.1 mmol/L (3.6-5.0); SODIUM 135.8 mmol/L (137-145)
[2017-09-30 10:38] LABS: APPEARANCE,URINE SLIGHTLY-CLOUDY; BILIRUBIN,URINE NEGATIVE (NEGATIVE); COLOR,URINE YELLOW; GLUCOSE, URINE 50 mg/dL (NEGATIVE); KETONES,URINE NEGATIVE (NEGATIVE); LEUKOCYTE ESTERASE,URINE MODERATE (NEGATIVE); NITRITE,URINE NEGATIVE (NEGATIVE); PROTEIN,URINE 30 mg/dL (NEGATIVE); URINE SPECIFIC GRAVITY 1.011; UROBILINOGEN,URINE NEGATIVE mg/dL (<2.0)
--- NOTE | 2017-09-30 10:49 | ER Document Report ---
ED General - General Chief Complaint: Fever Stated Complaint: FEVER Time Seen by Provider: 09/30/17 07:59 TRAVEL OUTSIDE OF THE [place] IN LAST 30 DAYS: No - HPI Patient complains to provider of: Fever Notes: Fever nausea vomiting ongoing for the last 24 hours. Patient otherwise states not feeling well for the last few days. Patient normally does not require oxygen slightly hypoxic with SPO2 90 upon EMS evaluation. Upon my evaluation patient resting looks uncomfortable. Denies any recent antibiotics denies any trauma - Related Data Allergies/Adverse Reactions: codeine Adverse Reaction (Intermediate, Verified 05/29/17 03:22) Nausea Past Medical History - Social History Smoking Status: Unknown if Ever Smoked Family History: Hypertension Patient has suicidal ideation: No Patient has homicidal ideation: No - Past Medical History Cardiac Medical History: Reports: Hx Hypertension Denies: Hx Atrial Fibrillation, Hx Congestive Heart Failure, Hx Coronary Artery Disease, Hx DVT, Hx Heart Attack, Hx Hypercholesterolemia, Hx Pulmonary Embolism Pulmonary Medical History: Reports: Hx Bronchitis - Chronic Denies: Hx Asthma, Hx COPD, Hx Sleep Apnea Neurological Medical History: Denies: Hx Seizures Endocrine Medical History: Reports: Hx Diabetes Mellitus Type 2. Denies: Hx Diabetes Mellitus Type 1, Hx Hyperthyroidism, Hx Hypothyroidism Renal/ Medical History: Denies: Hx Peritoneal Dialysis GI Medical History: Denies: Hx Cirrhosis, Hx Gastroesophageal Reflux Disease, Hx Hepatitis Musculoskeltal Medical History: Denies Hx Arthritis Psychiatric Medical History: Denies: Hx Depression Infectious Medical History: Denies: Hx C-Diff, Hx Hepatitis, Hx MRSA Past Surgical History: Reports: Hx Gynecologic Surgery - cysts removed., Hx Herniorrhaphy, Hx Hysterectomy - Immunizations Hx Diphtheria, Pertussis, Tetanus Vaccination: No Review of Systems - Review of Systems Constitutional: Fever EENT: No symptoms reported Cardiovascular: No symptoms reported Respiratory: No symptoms reported Gastrointestinal: Diarrhea, Nausea, Vomiting Genitourinary: No symptoms reported Female Genitourinary: No symptoms reported Musculoskeletal: No symptoms reported Skin: No symptoms reported Hematologic/Lymphatic: No symptoms reported Neurological/Psychological: No symptoms reported -: Yes All other systems reviewed and negative Physical Exam - Vital signs Vitals: Temp Pulse Resp BP Pulse Ox 99.6 F 100 18 156/63 H 95 09/30/17 08:00 09/30/17 08:00 09/30/17 08:00 09/30/17 08:00 09/30/17 08:00 Interpretation: Normal - General General appearance: Appears well, Alert - HEENT Head: Normocephalic, Atraumatic Eyes: Normal Pupils: PERRL - Respiratory Respiratory status: No respiratory distress Chest status: Nontender Breath sounds: Rhonchi, Wheezing Chest palpation: Normal - Cardiovascular Rhythm: Regular Heart sounds: Normal auscultation Murmur: No - Abdominal Inspection: Normal Distension: No distension Bowel sounds: Normal Tenderness: Nontender Organomegaly: No organomegaly - Back Back: Normal, Nontender - Extremities General upper extremity: Normal inspection, Nontender, Normal color, Normal ROM , Normal temperature General lower extremity: Normal inspection, Nontender, Normal color, Normal ROM , Normal temperature, Normal weight bearing. No: Noemí's sign - Neurological Neuro grossly intact: Yes Cognition: Normal Orientation: AAOx4 [place] Coma Scale Eye Opening: Spontaneous Mary Coma Scale Verbal: Oriented Mary Coma Scale Motor: Obeys Commands [place] Coma Scale Total: 15 Speech: Normal Motor strength normal: LUE, RUE, LLE, RLE Sensory: Normal - Psychological Associated symptoms: Normal affect, Normal mood - Skin Skin Temperature: Warm Skin Moisture: Dry Skin Color: Normal Course - Re-evaluation Re-evalutation: 09/30/17 16:05 Chest x-ray shows pneumonia. Patient unable to tolerate p.o. still will admit for IV antibiotics. - Vital Signs Vital signs: Temp Pulse Resp BP Pulse Ox 98.0 F 100 17 155/65 H 98 09/30/17 10:26 09/30/17 08:00 09/30/17 10:01 09/30/17 10:01 09/30/17 10:01 - Laboratory Result Diagrams: 09/30/17 08:58 09/30/17 08:58 Laboratory results interpreted by me: 09/30/17 09/30/17 09/30/17 08:58 08:58 08:58 WBC 18.6 H Hgb 11.1 L Hct 33.0 L RDW 14.9 H Seg Neuts % (Manual) 81 H Band Neutrophils % 9 H Lymphocytes % (Manual) 4 L Abs Neuts (Manual) 16.7 H VBG pH 7.43 H Sodium 135.8 L Carbon Dioxide 21 L BUN 29 H Creatinine 1.30 H Est GFR ( Amer) 47 L Est GFR (Non-Af Amer) 39 L Glucose 204 H POC Glucose Urine Protein Urine Glucose (UA) Urine Blood Ur Leukocyte Esterase 09/30/17 09/30/17 09:24 10:12 WBC Hgb Hct RDW Seg Neuts % (Manual) Band Neutrophils % Lymphocytes % (Manual) Abs Neuts (Manual) VBG pH Sodium Carbon Dioxide BUN Creatinine Est GFR ( Amer) Est GFR (Non-Af Amer) Glucose POC Glucose 183 H Urine Protein 30 H Urine Glucose (UA) 50 H Urine Blood MODERATE H Ur Leukocyte Esterase MODERATE H Discharge - Discharge Clinical Impression: Nausea vomiting and diarrhea Pneumonia Qualifiers: Pneumonia type: due to unspecified organism Laterality: right Lung location: upper lobe of lung Qualified Code(s): J18.1 - Lobar pneumonia, unspecified organism Leukocytosis Qualifiers: Leukocytosis type: unspecified Qualified Code(s): D72.829 - Elevated white blood cell count, unspecified Fever Qualifiers: Fever type: unspecified Qualified Code(s): R50.9 - Fever, unspecified Condition: Good Disposition: ADMITTED INPATIENT Admitting Provider: Hospitalist - [facility] Admitted: Telemetry
[2017-09-30 11:31] LABS: A TYPE INFLUENZA AG NEGATIVE (NEGATIVE); B INFLUENZA AG NEGATIVE (NEGATIVE)
[2017-09-30] MEDS ORDERED: ACETAMINOPHEN 325 MG TABLET PO PRN (13:27)
[2017-09-30] MEDS ORDERED: OXYCODONE-ACETAMINOPHEN 5-325 MG TABLET PO PRN (14:17)
[2017-09-30] MEDS ORDERED: ONDANSETRON HCL INJ/PF 4 MG/2 ML SDV IV PRN (14:17)
[2017-09-30] MEDS ORDERED: IPRATROPIUM/ALBUTEROL 0.5-2.5 MG/3 ML AMPUL NEB PRN (14:17)
[2017-09-30] MEDS ORDERED: ACETAMINOPHEN 650 MG SUPP.RECT PR PRN (14:17)
[2017-09-30] MEDS ORDERED: DEXTROSE 40% GEL 15 GM TUBE PO PRN ×2 (14:26)
[2017-09-30] MEDS ORDERED: DEXTROSE 50%-WATER 25 GM/50 ML DISP.SYRIN IV PRN ×2 (14:26)
[2017-09-30] MEDS ORDERED: GLUCAGON,HUMAN RECOMB 1 MG INJ IM PRN (14:26)
--- NOTE | 2017-09-30 14:41 | PDOC H&P ---
History of Present Illness Admission Date/PCP: 09/30/17 10:53 AZUCENA RIVERA MD Patient complains of: Shortness of Breath History of Present Illness: MERCEDES ZAPATA is a 87 year old female presents with complaint of shortness of breath for approximately 2 weeks. Patient's son states that he had taken patient to urgent care where she was placed on Levaquin and completed treatment however did not demonstrate any improvement. Son also reports that 2 weeks ago the patient fell and hit her head and required stitches that was done by another local physician. Patient complains of severe headaches that have been affecting her ability to ambulate. Son reports the patient has had a CT of her head that did not demonstrate any abnormalities however she has not had an MRI of her head. Son and patient confirmed that patient severe headaches have been going on for the last 6 months. Son also reports that his mother does not use her walker as instructed however she is starting to use it more recently. Son also reports that patient has had fever at home along with productive cough. Patient reports that she coughs up thick white phlegm for the last 7-10 days. She also reports that she has had a poor appetite. Patient denies any chest pain, does admit to nausea and vomiting, and does admit to diarrhea. Past Medical History Cardiac Medical History: Reports: Hypertension Denies: Atrial Fibrillation, Congestive Heart Failure, Coronary Artery Disease, DVT, Myocardial Infarction, Hyperlipidema, Pulmonary Embolism Pulmonary Medical History: Reports: Bronchitis - Chronic Denies: Asthma, Chronic Obstructive Pulmonary Disease (COPD), Sleep Apnea Neurological Medical History: Denies: Seizures Endocrine Medical History: Reports: Diabetes Mellitus Type 2 Denies: Diabetes Mellitus Type 1, Hyperthyroidism, Hypothyroidism GI Medical History: Denies: Cirrhosis, Gastroesophageal Reflux Disease, Hepatitis Musculoskeltal Medical History: Denies: Arthritis Psychiatric Medical History: Denies: Depression Infectious Medical History: Denies: Clostridium Difficile, Methicillin-Resistant Staph Aureus Past Surgical History Past Surgical History: Reports: Herniorrhaphy, Hysterectomy Social History Smoking Status: Unknown if Ever Smoked Frequency of Alcohol Use: None Drugs: None - Advance Directive Resuscitation Status: Full Code Family History Family History: Hypertension Parental Family History Reviewed: No Children Family History Reviewed: No Sibling(s) Family History Reviewed.: No Medication/Allergy Home Medications: Aspirin [Ecotrin 81 mg EC Tablet] 81 mg PO DAILY 09/30/17 Docusate Sodium [Colace] 100 mg PO DAILY 09/30/17 Metformin HCl [Glucophage XR 500 mg Tablet] 500 mg PO BIDBS 09/30/17 Olmesartan/Hydrochlorothiazide [Benicar Hct 40-25 Mg Tablet] 1 each PO DAILY Allergies/Adverse Reactions: codeine Adverse Reaction (Intermediate, Verified 05/29/17 03:22) Nausea Review of Systems Constitutional: PRESENT: chills, fatigue, night sweats, weakness Eyes: ABSENT: visual disturbances Ears: ABSENT: hearing changes Cardiovascular: ABSENT: chest pain, dyspnea on exertion, edema, orthropnea, palpitations Respiratory: PRESENT: cough, sputum Gastrointestinal: PRESENT: diarrhea, nausea, vomiting. ABSENT: abdominal pain, constipation, hematemesis, hematochezia Genitourinary: ABSENT: dysuria, hematuria Musculoskeletal: ABSENT: joint swelling Integumentary: ABSENT: rash, wounds Neurological: PRESENT: frequent falls, other - headache. ABSENT: abnormal gait , abnormal speech, confusion, dizziness, focal weakness, syncope Psychiatric: ABSENT: anxiety, depression, homidical ideation, suicidal ideation Endocrine: ABSENT: cold intolerance, heat intolerance, polydipsia, polyuria Hematologic/Lymphatic: ABSENT: easy bleeding, easy bruising Physical Exam Vital Signs: Temp Pulse Resp BP Pulse Ox 98.0 F 100 17 155/65 H 98 09/30/17 10:26 09/30/17 08:00 09/30/17 10:01 09/30/17 10:01 09/30/17 10:01 General appearance: PRESENT: no acute distress, well-developed, well-nourished Head exam: PRESENT: atraumatic, normocephalic, other - Patient with multiple trigger points noted within the scalene muscles sternocleidomastoid muscle. Trapezius with multiple trigger points noted along the base of the skull patient with full range of motion flexion and extension with no pain Eye exam: PRESENT: conjunctiva pink, EOMI, other - Photophobia. ABSENT: scleral icterus Ear exam: PRESENT: normal external ear exam Mouth exam: PRESENT: moist, tongue midline Neck exam: ABSENT: carotid bruit, JVD, lymphadenopathy, thyromegaly Respiratory exam: PRESENT: other - Positive for accessory muscle use, positive for coarse breath sounds heard bilateral bases, positive for productive cough with thick white phlegm Cardiovascular exam: PRESENT: RRR. ABSENT: diastolic murmur, rubs, systolic murmur Pulses: PRESENT: normal dorsalis pedis pul Vascular exam: PRESENT: normal capillary refill GI/Abdominal exam: PRESENT: normal bowel sounds, soft. ABSENT: distended, guarding, mass, organolmegaly, rebound, tenderness Rectal exam: PRESENT: deferred Extremities exam: PRESENT: full ROM. ABSENT: calf tenderness, clubbing, pedal edema Neurological exam: PRESENT: alert, awake, oriented to person, oriented to place , oriented to time, oriented to situation, CN II-XII grossly intact. ABSENT: motor sensory deficit Psychiatric exam: PRESENT: appropriate affect, normal mood. ABSENT: homicidal ideation, suicidal ideation Skin exam: PRESENT: dry, intact, warm. ABSENT: cyanosis, rash Results Impressions: Chest X-Ray 09/30/17 08:13 IMPRESSION: Minimal right upper lobe airspace disease worrisome for early or developing pneumonia. Assessment & Plan - Diagnosis (1) Pneumonia Qualifiers: Pneumonia type: due to unspecified organism Is this a current diagnosis for this admission?: Yes Plan: Community-acquired pneumonia: Sputum has been collected. Will place patient on Zosyn for antibiotic treatment. Patient has had failed outpatient treatment of Levaquin. (2) Acute renal injury Is this a current diagnosis for this admission?: Yes Plan: Patient's baseline renal function was noted to be 0.89. Will place on IV fluids for volume expansion. (3) Fever Is this a current diagnosis for this admission?: Yes Plan: In setting of pneumonia community-acquired: We will place on Zosyn. Sputum culture pending as well as blood culture and urine culture (4) Leukocytosis Is this a current diagnosis for this admission?: Yes Plan: In setting of community-acquired pneumonia: Patient will be started on Zosyn. Patient has blood culture, urine culture and sputum culture pending. (5) Nausea vomiting and diarrhea Is this a current diagnosis for this admission?: Yes Plan: We will order C. difficile and stool studies. Patient states she has had one episode of diarrhea. Due to patient being placed on Levaquin as outpatient will screen patient for C. difficile. (6) Diabetes mellitus type 2 in obese Is this a current diagnosis for this admission?: Yes Plan: We will place patient on sliding scale insulin. (7) HTN (hypertension) Qualifiers: Hypertension type: essential hypertension Qualified Code(s): I10 - Essential (primary) hypertension Is this a current diagnosis for this admission?: Yes Plan: Continue patient's home medications once verified by pharmacy. (8) Debility Is this a current diagnosis for this admission?: Yes Plan: We will order for PT OT. Patient is interested in rehab if she continues to remain weak during hospital stay. Consult has been placed for social work to evaluate for rehab placement. (9) Obesity (BMI 30.0-34.9) Is this a current diagnosis for this admission?: Yes Plan: Encourage dietary changes. (10) DVT prophylaxis Is this a current diagnosis for this admission?: Yes Plan: Placed on heparin - Time Time Spent: 30 to 50 Minutes - Patient currently interested in home health versus rehab depending on how well she does during hospital stay. Patient has PT OT ordered
[2017-09-30] MEDS: PIPERACILLIN SODIUM/TAZOBACTAM 3.375 GM in NORMAL SALINE 100 ML IV SCH (18:48)
--- NOTE | 2017-09-30 18:51 | RADIOLOGY REPORT (SQ) ---
EXAM DESCRIPTION: MRI HEAD WITHOUT COMPLETED DATE/TIME: 09/30/2017 6:29 pm REASON FOR STUDY: Headache and balance COMPARISON: Brain CT scan dated May 2017 TECHNIQUE: Multiplanar imaging includes non-contrasted T1, T2, FLAIR, and diffusion with ADC map seq uences. Images stored on PACS. LIMITATIONS: None. FINDINGS: ANATOMY: No anomalies. Normal vascular flow voids. Pituitary fossa normal. CSF SPACES: Atrophy induced prominence of ventricles and CSF spaces. CEREBRUM: High signal intensity lesions scattered throughout the white matter on FLAIR imaging with d istribution suggesting micro-vascular ischemic changes. No evidence of hemorrhage, mass, or extraaxi al fluid collection. POSTERIOR FOSSA: No signal alteration. No hemorrhage. No edema, masses or mass effect. Internal pati tory canals, cerebello-pontine angles, mastoids normal. DIFFUSION IMAGING: Negative for acute or sub-acute infarction. ORBITS: No masses. Globes normal. PARANASAL SINUSES: No fluid levels. Mucosa normal. OTHER: No other significant finding. IMPRESSION: ATROPHY AND CHRONIC MICRO-VASCULAR ISCHEMIC CHANGES. OTHERWISE NORMAL MRI OF THE BRAIN W ITHOUT INTRAVENOUS GADOLINIUM CONTRAST. EVIDENCE OF ACUTE STROKE: NO. TECHNICAL DOCUMENTATION: JOB ID: [id number]- All Rights Reserved
[2017-09-30] MEDS: RINGERS SOLUTION,LACTATED 1,000 ML IV PRN (21:02)
[2017-09-30] MEDS: HEPARIN SOD (PORCINE) 5,000 UNIT/ML 1 ML SYRINGE SUBCUT SCH (22:07)
[2017-10-01] MEDS: PIPERACILLIN SODIUM/TAZOBACTAM 3.375 GM in NORMAL SALINE 100 ML IV SCH ×5 (00:02→23:51)
[2017-10-01 05:22] LABS: ABSOLUTE BASOPHILS # (AUTO) 0.1 10^3/uL (0.0-0.2); ABSOLUTE EOSINOPHILS # (AUTO) 0.1 10^3/uL (0.0-0.6); ABSOLUTE LYMPHOCYTES (AUTO) 1.7 10^3/uL (0.5-4.7); ABSOLUTE MONOCYTES (AUTO) 1.1 10^3/uL (0.1-1.4); ABSOLUTE NEUT (AUTO) 12.4 10^3/uL (1.7-8.2); BASOPHILS % (AUTO) 0.3 % (0-2); EOSINOPHILS % (AUTO) 0.5 % (0-6); HEMOGLOBIN 9.5 g/dL (12.0-15.5); MEAN CORPUSCULAR HEMOGLOBIN 29.3 pg (27.0-33.4); MEAN CORPUSCULAR HGB CONC 33.8 g/dL (32.0-36.0); MEAN CORPUSCULAR VOLUME 87 fl (80-97); MONOCYTES % (AUTO) 7.1 % (3-13); PLATELET COUNT 248 10^3/uL (150-450); RED BLOOD COUNT 3.24 10^6/uL (3.72-5.28); RED CELL DISTRIBUTION WIDTH 15.3 % (11.5-14.0); SEGMENTED NEUTROPHILS % (AUTO) 81.1 % (42-78); TOTAL CELLS COUNTED % (AUTO) 100 %; WHITE BLOOD COUNT 15.4 10^3/uL (4.0-10.5)
[2017-10-01] MEDS: HEPARIN SOD (PORCINE) 5,000 UNIT/ML 1 ML SYRINGE SUBCUT SCH ×3 (05:35→21:24)
[2017-10-01 05:47] LABS: ALANINE AMINOTRANSFERASE 27 U/L (9-52); ALBUMIN 3.4 g/dL (3.5-5.0); ALKALINE PHOSPHATASE 60 U/L (38-126); ANION GAP 11 (5-19); ASPARTATE AMINO TRANSFERASE 14 U/L (14-36); BILIRUBIN,DIRECT 0.4 mg/dL (0.0-0.4); BILIRUBIN,TOTAL 0.7 mg/dL (0.2-1.3); BLOOD UREA NITROGEN 26 mg/dL (7-20); CALCIUM 8.6 mg/dL (8.4-10.2); CARBON DIOXIDE 24 mmol/L (22-30); CHLORIDE 103 mmol/L (98-107); GLUCOSE 169 mg/dL (75-110); SODIUM 137.7 mmol/L (137-145)
[2017-10-01] MEDS ORDERED: LANSOPRAZOLE 15 MG TAB.RAP.DR PO SCH (06:00)
[2017-10-01 06:26] LABS: FREE T4 (FREE THYROXINE) 1.27 ng/dL (0.78-2.19)
[2017-10-01] MEDS: INSULIN LISPRO 100 UNIT/ML 3 ML VIAL SUBCUT PRN ×3 (08:52→21:24)
[2017-10-01 09:29] LABS: THYROID STIMULATING HORMONE 2.17 uIU/mL (0.47-4.68)
--- NOTE | 2017-10-01 10:46 | PDOC PROGRESS REPORT ---
Subjective Progress Note for:: 10/01/17 Subjective:: Pt states that she is feeling a little better. Pt states that she coughed up phlegm but not as much. Reason For Visit: COMMUNITY ACQUIRED PNEUMONIA Physical Exam Vital Signs: Temp Pulse Resp BP Pulse Ox 97.7 F 91 18 128/49 H 95 10/01/17 07:00 10/01/17 09:04 10/01/17 09:04 10/01/17 07:00 10/01/17 09:04 Intake & Output 09/30/17 10/01/17 10/02/17 06:59 06:59 06:59 Intake Total 525 Balance 525 Weight 79.3 kg General appearance: PRESENT: no acute distress, well-developed, well-nourished Head exam: PRESENT: atraumatic, normocephalic Eye exam: PRESENT: conjunctiva pink, EOMI. ABSENT: scleral icterus Ear exam: PRESENT: normal external ear exam Mouth exam: PRESENT: moist, tongue midline Neck exam: ABSENT: carotid bruit, JVD, lymphadenopathy, thyromegaly Respiratory exam: PRESENT: accessory muscle use, prolonged expiratory phas, rhonchi, wheezes. ABSENT: rales Cardiovascular exam: PRESENT: RRR. ABSENT: diastolic murmur, rubs, systolic murmur Pulses: PRESENT: normal dorsalis pedis pul Vascular exam: PRESENT: normal capillary refill GI/Abdominal exam: PRESENT: normal bowel sounds, soft. ABSENT: distended, guarding, mass, organolmegaly, rebound, tenderness Rectal exam: PRESENT: deferred Extremities exam: PRESENT: full ROM. ABSENT: calf tenderness, clubbing, pedal edema Musculoskeletal exam: PRESENT: full ROM Neurological exam: PRESENT: alert, awake, oriented to person, oriented to place , oriented to time, oriented to situation, CN II-XII grossly intact. ABSENT: motor sensory deficit Psychiatric exam: PRESENT: appropriate affect, normal mood. ABSENT: homicidal ideation, suicidal ideation Skin exam: PRESENT: dry, intact, warm. ABSENT: cyanosis, rash Results Laboratory Results: 10/01/17 03:55 10/01/17 03:55 10/01/17 10/01/17 10/01/17 03:55 03:55 03:55 WBC 15.4 H RBC 3.24 L Hgb 9.5 L Hct 28.0 L MCV 87 MCH 29.3 MCHC 33.8 RDW 15.3 H Plt Count 248 Seg Neutrophils % 81.1 H Lymphocytes % 11.0 L Monocytes % 7.1 Eosinophils % 0.5 Basophils % 0.3 Absolute Neutrophils 12.4 H Absolute Lymphocytes 1.7 Absolute Monocytes 1.1 Absolute Eosinophils 0.1 Absolute Basophils 0.1 Sodium 137.7 Potassium 4.0 Chloride 103 Carbon Dioxide 24 Anion Gap 11 BUN 26 H Creatinine 1.40 H Est GFR ( Amer) 43 L Est GFR (Non-Af Amer) 35 L Glucose 169 H Calcium 8.6 Total Bilirubin 0.7 AST 14 ALT 27 Alkaline Phosphatase 60 Total Protein 6.0 L Albumin 3.4 L TSH 2.17 Free T4 1.27 Impressions: Head MRI 09/30/17 00:00 IMPRESSION: ATROPHY AND CHRONIC MICRO-VASCULAR ISCHEMIC CHANGES. OTHERWISE NORMAL MRI OF THE BRAIN WITHOUT INTRAVENOUS GADOLINIUM CONTRAST. EVIDENCE OF ACUTE STROKE: NO. Chest X-Ray 09/30/17 08:13 IMPRESSION: Minimal right upper lobe airspace disease worrisome for early or developing pneumonia. Assessment & Plan - Diagnosis (1) Pneumonia Qualifiers: Pneumonia type: due to unspecified organism Laterality: right Lung location: upper lobe of lung Qualified Code(s): J18.1 - Lobar pneumonia, unspecified organism Is this a current diagnosis for this admission?: Yes Plan: Community-acquired pneumonia: Sputum has been collected. Pt failed Levaquin as outpatient. Will continue Zosyn for antibiotic treatment. (2) Acute renal injury Is this a current diagnosis for this admission?: Yes Plan: Patient's baseline renal function was noted to be 0.89. Will continue IVFs (3) Fever Qualifiers: Fever type: unspecified Qualified Code(s): R50.9 - Fever, unspecified Is this a current diagnosis for this admission?: Yes Plan: In setting of pneumonia community-acquired: Will continue Zosyn. Sputum culture pending as well as blood culture and urine culture (4) Leukocytosis Qualifiers: Leukocytosis type: unspecified Qualified Code(s): D72.829 - Elevated white blood cell count, unspecified Is this a current diagnosis for this admission?: Yes Plan: In setting of community-acquired pneumonia: Will continue Zosyn. Patient has blood culture, urine culture and sputum culture pending. (5) Nausea vomiting and diarrhea Is this a current diagnosis for this admission?: Yes Plan: C. difficile and stool studies pending. (6) Diabetes mellitus type 2 in obese Is this a current diagnosis for this admission?: Yes Plan: Hemoglobin 7.5%. SSI. Will place pt on Lantus. (7) HTN (hypertension) Qualifiers: Hypertension type: essential hypertension Qualified Code(s): I10 - Essential (primary) hypertension Is this a current diagnosis for this admission?: Yes Plan: Will hold blood pressure medication due to renal function. (8) Anemia Is this a current diagnosis for this admission?: Yes Plan: Most likely Iron deficiency component: Will check anemia work up. (9) Debility Is this a current diagnosis for this admission?: Yes Plan: Will consult PT OT. Patient is interested in rehab if she continues to remain weak during hospital stay. Consult has been placed for social work to evaluate for rehab placement. (10) Obesity (BMI 30.0-34.9) Is this a current diagnosis for this admission?: Yes Plan: Encourage dietary changes. (11) DVT prophylaxis Is this a current diagnosis for this admission?: Yes Plan: Heparin - Time Time Spent with patient: 25-34 minutes
--- NOTE | 2017-10-01 12:13 | RADIOLOGY REPORT (SQ) ---
EXAM DESCRIPTION: CT CHEST WITHOUT COMPLETED DATE/TIME: 10/01/2017 11:22 am REASON FOR STUDY: Pneumonia COMPARISON: Chest x-ray dated 09/30/2017. TECHNIQUE: CT scan performed of the chest without intravenous contrast. Images reviewed with lung, soft tissue and bone windows. Reconstructed coronal and sagittal MPR images reviewed. All images st ored on PACS. All CT scanners at this facility use dose modulation, iterative reconstruction, and/or weight based d osing when appropriate to reduce radiation dose to as low as reasonably achievable (ALARA). [facility]: Dose Right [facility]: CareDose [facility]: Dose Right [facility]: Teradose 4D [facility]: [employer] RADIATION DOSE: CT Rad equipment meets quality standard of care and radiation dose reduction techniq ues were employed. CTDIvol: 13.5 mGy. DLP: 491 mGy-cm. mGy. LIMITATIONS: No technical limitations. FINDINGS: LUNGS AND PLEURA: Chronic scarring in the right and left lower lobe. Scattered airspace d isease in the right lower lobe and focal airspace disease in the posterior right upper lobe. No pleu ral effusion. HILAR AND MEDIASTINAL STRUCTURES: No identified masses or abnormal nodes. No obvious aneurysm. HEART AND VASCULAR STRUCTURES: No aneurysm. No pericardial effusion. UPPER ABDOMEN: No significant findings. Limited exam. THYROID AND OTHER SOFT TISSUES: No masses. No adenopathy. BONES: No significant finding. HARDWARE: None in the chest. OTHER: No other significant findings. IMPRESSION: CHRONIC SCARRING IN THE LUNG BASES. CONSOLIDATIONS IN THE RIGHT UPPER AND RIGHT LOWER L OBE CONSISTENT WITH PNEUMONIA. TECHNICAL DOCUMENTATION: JOB ID: [id number] Quality ID # [id number]: Final reports with documentation of one or more dose reduction techniques (e.g., Au tomated exposure control, adjustment of the mA and/or kV according to patient size, use of iterative reconstruction technique) 2010 [employer]- All Rights Reserved
[2017-10-01] MEDS ORDERED: ACETAMINOPHEN 650 MG SUPP.RECT PR PRN (14:24)
[2017-10-01] MEDS ORDERED: ONDANSETRON HCL INJ/PF 4 MG/2 ML SDV IV PRN (14:30)
[2017-10-01] MEDS: RINGERS SOLUTION,LACTATED 1,000 ML IV PRN (18:03)
[2017-10-02] MEDS: LANSOPRAZOLE 15 MG TAB.RAP.DR PO SCH (05:48)
[2017-10-02] MEDS: PIPERACILLIN SODIUM/TAZOBACTAM 3.375 GM in NORMAL SALINE 100 ML IV SCH ×3 (05:48→17:32)
[2017-10-02] MEDS: HEPARIN SOD (PORCINE) 5,000 UNIT/ML 1 ML SYRINGE SUBCUT SCH (05:48)
[2017-10-02 06:39] LABS: ABSOLUTE EOSINOPHILS # (AUTO) 0.2 10^3/uL (0.0-0.6); ABSOLUTE LYMPHOCYTES (AUTO) 1.5 10^3/uL (0.5-4.7); ABSOLUTE MONOCYTES (AUTO) 0.7 10^3/uL (0.1-1.4); ABSOLUTE NEUT (AUTO) 7.2 10^3/uL (1.7-8.2); ABSOLUTE RETICS # 0.048 10^6/uL (0.028-0.122); BASOPHILS % (AUTO) 0.4 % (0-2); EOSINOPHILS % (AUTO) 2.1 % (0-6); HEMATOCRIT 25.8 % (36.0-47.0); HEMOGLOBIN 8.8 g/dL (12.0-15.5); MEAN CORPUSCULAR HEMOGLOBIN 29.4 pg (27.0-33.4); MEAN CORPUSCULAR HGB CONC 33.9 g/dL (32.0-36.0); MEAN CORPUSCULAR VOLUME 87 fl (80-97); MONOCYTES % (AUTO) 7.7 % (3-13); PLATELET COUNT 266 10^3/uL (150-450); RED BLOOD COUNT 2.98 10^6/uL (3.72-5.28); RED CELL DISTRIBUTION WIDTH 14.9 % (11.5-14.0); SEGMENTED NEUTROPHILS % (AUTO) 74.8 % (42-78); TOTAL CELLS COUNTED % (AUTO) 100 %; WHITE BLOOD COUNT 9.7 10^3/uL (4.0-10.5)
[2017-10-02 06:53] LABS: ALANINE AMINOTRANSFERASE 24 U/L (9-52); ALBUMIN 3.1 g/dL (3.5-5.0); ALKALINE PHOSPHATASE 56 U/L (38-126); ANION GAP 8 (5-19); ASPARTATE AMINO TRANSFERASE 11 U/L (14-36); BILIRUBIN,DIRECT 0.2 mg/dL (0.0-0.4); BILIRUBIN,TOTAL 0.4 mg/dL (0.2-1.3); BLOOD UREA NITROGEN 20 mg/dL (7-20); CALCIUM 8.7 mg/dL (8.4-10.2); CARBON DIOXIDE 26 mmol/L (22-30); CHLORIDE 106 mmol/L (98-107); GLUCOSE 129 mg/dL (75-110); IRON(TIBC) 14.8 ug/dL (37-170); SODIUM 140.2 mmol/L (137-145); TOTAL PROTEIN 5.6 g/dL (6.3-8.2)
[2017-10-02 08:08] LABS: FOLATE > 20.00 ng/mL (>2.76)
[2017-10-02] MEDS: RINGERS SOLUTION,LACTATED 1,000 ML IV PRN (11:51)
[2017-10-02] MEDS: INSULIN LISPRO 100 UNIT/ML 3 ML VIAL SUBCUT PRN ×3 (12:45→22:12)
[2017-10-02] MEDS ORDERED: IRON SUCROSE COMPLEX INJ/PF 100 MG/5 ML SDV IV ONE (17:00)
--- NOTE | 2017-10-02 17:12 | PDOC PROGRESS REPORT ---
Subjective Progress Note for:: 10/02/17 Subjective:: Pt states that she is feeling better. Pt states that she is coughing up phelgm. Pt states that she worked with PT/OT. Pt was sitting in chair eating lunch. Reason For Visit: COMMUNITY ACQUIRED PNEUMONIA Physical Exam Vital Signs: Temp Pulse Resp BP Pulse Ox 98.6 F 77 17 147/64 H 96 10/02/17 15:30 10/02/17 15:30 10/02/17 15:30 10/02/17 15:30 10/02/17 16:00 Intake & Output 10/01/17 10/02/17 10/03/17 06:59 06:59 06:59 Intake Total 525 3220 503 Output Total 950 Balance 525 2270 503 Weight 79.3 kg 81.5 kg General appearance: PRESENT: no acute distress, well-developed, well-nourished Head exam: PRESENT: atraumatic, normocephalic Eye exam: PRESENT: conjunctiva pink, EOMI. ABSENT: scleral icterus Ear exam: PRESENT: normal external ear exam Mouth exam: PRESENT: moist, tongue midline Neck exam: ABSENT: carotid bruit, JVD, lymphadenopathy, thyromegaly Respiratory exam: PRESENT: other - + coarse breath sounds on right side. + fair air movement, No wheezing. Cardiovascular exam: PRESENT: RRR. ABSENT: diastolic murmur, rubs, systolic murmur Pulses: PRESENT: normal dorsalis pedis pul Vascular exam: PRESENT: normal capillary refill GI/Abdominal exam: PRESENT: normal bowel sounds, soft. ABSENT: distended, guarding, mass, organolmegaly, rebound, tenderness Rectal exam: PRESENT: deferred Extremities exam: PRESENT: full ROM. ABSENT: calf tenderness, clubbing, pedal edema Neurological exam: PRESENT: alert, awake, oriented to person, oriented to place , oriented to time, oriented to situation, CN II-XII grossly intact. ABSENT: motor sensory deficit Psychiatric exam: PRESENT: appropriate affect, normal mood. ABSENT: homicidal ideation, suicidal ideation Skin exam: PRESENT: dry, intact, warm. ABSENT: cyanosis, rash Results Laboratory Results: 10/02/17 05:19 10/02/17 05:19 10/02/17 10/02/17 10/02/17 05:19 05:19 09:16 WBC 9.7 RBC 2.98 L Hgb 8.8 L Hct 25.8 L MCV 87 MCH 29.4 MCHC 33.9 RDW 14.9 H Plt Count 266 Seg Neutrophils % 74.8 Lymphocytes % 15.0 Monocytes % 7.7 Eosinophils % 2.1 Basophils % 0.4 Absolute Neutrophils 7.2 Absolute Lymphocytes 1.5 Absolute Monocytes 0.7 Absolute Eosinophils 0.2 Absolute Basophils 0.0 Retic Count (auto) 1.60 Absolute Retic 0.048 Sodium 140.2 Potassium 4.0 Chloride 106 Carbon Dioxide 26 Anion Gap 8 BUN 20 Creatinine 1.35 H Est GFR ( Amer) 45 L Est GFR (Non-Af Amer) 37 L Glucose 129 H Calcium 8.7 Iron 14.8 L TIBC 298 % Saturation 5 Ferritin 78.20 Total Bilirubin 0.4 AST 11 L ALT 24 Alkaline Phosphatase 56 Total Protein 5.6 L Albumin 3.1 L Vitamin B12 789.0 Folate > 20.00 Stool Occult Blood Stool for White Cells NO WBCs SEEN 10/02/17 09:16 WBC RBC Hgb Hct MCV MCH MCHC RDW Plt Count Seg Neutrophils % Lymphocytes % Monocytes % Eosinophils % Basophils % Absolute Neutrophils Absolute Lymphocytes Absolute Monocytes Absolute Eosinophils Absolute Basophils Retic Count (auto) Absolute Retic Sodium Potassium Chloride Carbon Dioxide Anion Gap BUN Creatinine Est GFR ( Amer) Est GFR (Non-Af Amer) Glucose Calcium Iron TIBC % Saturation Ferritin Total Bilirubin AST ALT Alkaline Phosphatase Total Protein Albumin Vitamin B12 Folate Stool Occult Blood POSITIVE Stool for White Cells Impressions: Head MRI 09/30/17 00:00 IMPRESSION: ATROPHY AND CHRONIC MICRO-VASCULAR ISCHEMIC CHANGES. OTHERWISE NORMAL MRI OF THE BRAIN WITHOUT INTRAVENOUS GADOLINIUM CONTRAST. EVIDENCE OF ACUTE STROKE: NO. Chest X-Ray 09/30/17 08:13 IMPRESSION: Minimal right upper lobe airspace disease worrisome for early or developing pneumonia. Chest CT 10/01/17 00:00 IMPRESSION: CHRONIC SCARRING IN THE LUNG BASES. CONSOLIDATIONS IN THE RIGHT UPPER AND RIGHT LOWER LOBE CONSISTENT WITH PNEUMONIA. Assessment & Plan - Diagnosis (1) Pneumonia Qualifiers: Pneumonia type: due to unspecified organism Laterality: right Lung location: upper lobe of lung Qualified Code(s): J18.1 - Lobar pneumonia, unspecified organism Is this a current diagnosis for this admission?: Yes Plan: Secondary to H. Influenza: Will continue Zosyn. Pt is doing better. (2) Acute renal injury Is this a current diagnosis for this admission?: Yes Plan: Resolved. Will discontinue IVFs. (3) Fever Qualifiers: Fever type: unspecified Qualified Code(s): R50.9 - Fever, unspecified Is this a current diagnosis for this admission?: Yes Plan: In setting of pneumonia community-acquired secondary to H. influenza: Will continue Zosyn. (4) Leukocytosis Qualifiers: Leukocytosis type: unspecified Qualified Code(s): D72.829 - Elevated white blood cell count, unspecified Is this a current diagnosis for this admission?: Yes Plan: In setting of community-acquired pneumonia Secondary to H. Influenza: Will continue Zosyn. (5) Nausea vomiting and diarrhea Is this a current diagnosis for this admission?: Yes Plan: C. difficile and stool studies pending. (6) Diabetes mellitus type 2 in obese Is this a current diagnosis for this admission?: Yes Plan: Hemoglobin 7.5%. SSI. Will continue Lantus. (7) HTN (hypertension) Qualifiers: Hypertension type: essential hypertension Qualified Code(s): I10 - Essential (primary) hypertension Is this a current diagnosis for this admission?: Yes Plan: Will continue to monitor. Pt home medications are on hold. 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 (9) Debility Is this a current diagnosis for this admission?: Yes Plan: Will have pt continue to work with PT/OT. (10) Obesity (BMI 30.0-34.9) Is this a current diagnosis for this admission?: Yes Plan: Encourage dietary changes. (11) DVT prophylaxis Is this a current diagnosis for this admission?: Yes Plan: Heparin - Time Time Spent with patient: 15-24 minutes
[2017-10-02] MEDS: IRON SUCROSE COMPLEX INJ/PF 100 MG/5 ML SDV IV SCH (18:40)
[2017-10-02] MEDS: LIDOCAINE 5% (700 MG) TRANSDERMAL ADH..PATCH TP SCH (22:09)
[2017-10-03] MEDS: PIPERACILLIN SODIUM/TAZOBACTAM 3.375 GM in NORMAL SALINE 100 ML IV SCH ×5 (00:10→23:40)
[2017-10-03] MEDS: ACETAMINOPHEN 325 MG TABLET PO PRN (04:04)
[2017-10-03] MEDS: LANSOPRAZOLE 15 MG TAB.RAP.DR PO SCH (05:41)
[2017-10-03 07:11] LABS: HEMATOCRIT 26.4 % (36.0-47.0); HEMOGLOBIN 8.8 g/dL (12.0-15.5); MEAN CORPUSCULAR HEMOGLOBIN 28.8 pg (27.0-33.4); MEAN CORPUSCULAR HGB CONC 33.2 g/dL (32.0-36.0); MEAN CORPUSCULAR VOLUME 87 fl (80-97); PLATELET COUNT 277 10^3/uL (150-450); RED BLOOD COUNT 3.04 10^6/uL (3.72-5.28); RED CELL DISTRIBUTION WIDTH 14.9 % (11.5-14.0)
[2017-10-03 07:33] LABS: ALANINE AMINOTRANSFERASE 18 U/L (9-52); ALBUMIN 3.1 g/dL (3.5-5.0); ALKALINE PHOSPHATASE 60 U/L (38-126); ANION GAP 12 (5-19); ASPARTATE AMINO TRANSFERASE 11 U/L (14-36); BILIRUBIN,DIRECT 0.3 mg/dL (0.0-0.4); BILIRUBIN,TOTAL 0.3 mg/dL (0.2-1.3); BLOOD UREA NITROGEN 16 mg/dL (7-20); CALCIUM 8.4 mg/dL (8.4-10.2); CARBON DIOXIDE 22 mmol/L (22-30); CHLORIDE 104 mmol/L (98-107); GLUCOSE 133 mg/dL (75-110); MAGNESIUM 1.7 mg/dL (1.6-2.3); POTASSIUM 3.7 mmol/L (3.6-5.0); SODIUM 138.2 mmol/L (137-145); TOTAL PROTEIN 5.7 g/dL (6.3-8.2)
[2017-10-03 07:45] LABS: ABSOLUTE LYMPHOCYTES# (MANUAL) 1.4 10^3/uL (0.5-4.7); ABSOLUTE MONOCYTES # (MANUAL) 0.5 10^3/uL (0.1-1.4); BASOPHILS % (MANUAL) 0 % (0-2); EOSINOPHILS % (MANUAL) 2 % (0-6); HYPOCHROMASIA SLIGHT; LYMPHOCYTES % (MANUAL) 17 % (13-45); METAMYELOCYTES % (MANUAL) 2 % (0); MONOCYTES % (MANUAL) 6 % (3-13); OVALOCYTES SLIGHT; PLATELET COMMENT ADEQUATE; POIKILOCYTOSIS SLIGHT; POLYCHROMASIA SLIGHT; SEGMENTED NEUTROPHILS % (MAN) 73 % (42-78); TOTAL CELLS COUNTED 100; TOXIC GRANULATION SLIGHT; TOXIC VACUOLATION PRESENT
[2017-10-03] MEDS ORDERED: LIDOCAINE 5% (700 MG) TRANSDERMAL ADH..PATCH TP SCH (10:00)
[2017-10-03] MEDS: INSULIN LISPRO 100 UNIT/ML 3 ML VIAL SUBCUT PRN ×3 (12:49→22:37)
--- NOTE | 2017-10-03 13:18 | PDOC PROGRESS REPORT ---
Subjective Progress Note for:: 10/03/17 Subjective:: Patient states that she is feeling stronger. Patient states her breathing is improving and that she is able to walk a little bit longer distance. Patient states that she still is coughing up phlegm. Reason For Visit: COMMUNITY ACQUIRED PNEUMONIA Physical Exam Vital Signs: Temp Pulse Resp BP Pulse Ox 97.6 F 68 16 147/52 H 96 10/03/17 11:29 10/03/17 11:29 10/03/17 11:29 10/03/17 11:29 10/03/17 11:29 Intake & Output 10/02/17 10/03/17 10/04/17 06:59 06:59 06:59 Intake Total 3220 1875 Output Total 950 Balance 2270 1875 Weight 81.5 kg 86 kg General appearance: PRESENT: no acute distress, well-developed, well-nourished Head exam: PRESENT: atraumatic, normocephalic Eye exam: PRESENT: conjunctiva pink, EOMI. ABSENT: scleral icterus Ear exam: PRESENT: normal external ear exam Mouth exam: PRESENT: moist, tongue midline Neck exam: ABSENT: carotid bruit, JVD, lymphadenopathy, thyromegaly Respiratory exam: PRESENT: accessory muscle use, rhonchi, other - Diminished breath sounds at bases Cardiovascular exam: PRESENT: RRR. ABSENT: diastolic murmur, rubs, systolic murmur Pulses: PRESENT: normal dorsalis pedis pul Vascular exam: PRESENT: normal capillary refill GI/Abdominal exam: PRESENT: normal bowel sounds, soft. ABSENT: distended, guarding, mass, organolmegaly, rebound, tenderness Rectal exam: PRESENT: deferred Extremities exam: PRESENT: full ROM. ABSENT: calf tenderness, clubbing, pedal edema Musculoskeletal exam: PRESENT: full ROM Neurological exam: PRESENT: alert, awake, oriented to person, oriented to place , oriented to time, oriented to situation, CN II-XII grossly intact. ABSENT: motor sensory deficit Psychiatric exam: PRESENT: appropriate affect, normal mood. ABSENT: homicidal ideation, suicidal ideation Skin exam: PRESENT: dry, intact, warm. ABSENT: cyanosis, rash Results Laboratory Results: 10/03/17 06:00 10/03/17 06:00 10/02/17 10/03/17 10/03/17 09:16 06:00 06:00 WBC 8.0 RBC 3.04 L Hgb 8.8 L Hct 26.4 L MCV 87 MCH 28.8 MCHC 33.2 RDW 14.9 H Plt Count 277 Seg Neutrophils % Not Reportable Lymphocytes % Not Reportable Monocytes % Not Reportable Eosinophils % Not Reportable Basophils % Not Reportable Absolute Neutrophils Not Reportable Absolute Lymphocytes Not Reportable Absolute Monocytes Not Reportable Absolute Eosinophils Not Reportable Absolute Basophils Not Reportable Sodium 138.2 Potassium 3.7 Chloride 104 Carbon Dioxide 22 Anion Gap 12 BUN 16 Creatinine 1.30 H Est GFR ( Amer) 47 L Est GFR (Non-Af Amer) 39 L Glucose 133 H Calcium 8.4 Magnesium 1.7 Total Bilirubin 0.3 AST 11 L ALT 18 Alkaline Phosphatase 60 Total Protein 5.7 L Albumin 3.1 L Stool Occult Blood POSITIVE Impressions: Head MRI 09/30/17 00:00 IMPRESSION: ATROPHY AND CHRONIC MICRO-VASCULAR ISCHEMIC CHANGES. OTHERWISE NORMAL MRI OF THE BRAIN WITHOUT INTRAVENOUS GADOLINIUM CONTRAST. EVIDENCE OF ACUTE STROKE: NO. Chest X-Ray 09/30/17 08:13 IMPRESSION: Minimal right upper lobe airspace disease worrisome for early or developing pneumonia. Chest CT 10/01/17 00:00 IMPRESSION: CHRONIC SCARRING IN THE LUNG BASES. CONSOLIDATIONS IN THE RIGHT UPPER AND RIGHT LOWER LOBE CONSISTENT WITH PNEUMONIA. Assessment & Plan - Diagnosis (1) Pneumonia Qualifiers: Pneumonia type: due to unspecified organism Laterality: right Lung location: upper lobe of lung Qualified Code(s): J18.1 - Lobar pneumonia, unspecified organism Is this a current diagnosis for this admission?: Yes Plan: Secondary to H. Influenza: Will continue Zosyn. Pt is doing better. (2) Acute renal injury Is this a current diagnosis for this admission?: Yes Plan: Resolved. (3) Fever Qualifiers: Fever type: unspecified Qualified Code(s): R50.9 - Fever, unspecified Is this a current diagnosis for this admission?: Yes Plan: In setting of pneumonia community-acquired secondary to H. influenza: Will continue Zosyn. (4) Leukocytosis Qualifiers: Leukocytosis type: unspecified Qualified Code(s): D72.829 - Elevated white blood cell count, unspecified Is this a current diagnosis for this admission?: Yes Plan: In setting of community-acquired pneumonia Secondary to H. Influenza: Will continue Zosyn. (5) Nausea vomiting and diarrhea Is this a current diagnosis for this admission?: Yes Plan: C. difficile neg. (6) Diabetes mellitus type 2 in obese Is this a current diagnosis for this admission?: Yes Plan: Hemoglobin 7.5%. SSI. Will continue Lantus. (7) HTN (hypertension) Qualifiers: Hypertension type: essential hypertension Qualified Code(s): I10 - Essential (primary) hypertension Is this a current diagnosis for this admission?: Yes Plan: Will continue to monitor. Pt home medications are on hold. (8) Iron (Fe) deficiency anemia Qualifiers: Iron deficiency anemia type: chronic blood loss Qualified Code(s): D50.0 - Iron deficiency anemia secondary to blood loss (chronic) Is this a current diagnosis for this admission?: Yes Plan: Will continue Venofer. (9) Debility Is this a current diagnosis for this admission?: Yes Plan: Will have pt continue to work with PT/OT. (10) Obesity (BMI 30.0-34.9) Is this a current diagnosis for this admission?: Yes Plan: Encourage dietary changes. (11) DVT prophylaxis Is this a current diagnosis for this admission?: Yes Plan: SCDs - Time Time Spent with patient: 15-24 minutes
[2017-10-03] MEDS: IRON SUCROSE COMPLEX INJ/PF 100 MG/5 ML SDV IV SCH (17:36)
[2017-10-03] MEDS: LIDOCAINE 5% (700 MG) TRANSDERMAL ADH..PATCH TP SCH (22:38)
[2017-10-04] MEDS: ACETAMINOPHEN 325 MG TABLET PO PRN (00:38)
[2017-10-04] MEDS: PIPERACILLIN SODIUM/TAZOBACTAM 3.375 GM in NORMAL SALINE 100 ML IV SCH ×4 (05:26→23:30)
[2017-10-04] MEDS: LANSOPRAZOLE 15 MG TAB.RAP.DR PO SCH (05:26)
[2017-10-04 07:04] LABS: HEMATOCRIT 27.3 % (36.0-47.0); HEMOGLOBIN 9.2 g/dL (12.0-15.5); MEAN CORPUSCULAR HEMOGLOBIN 28.9 pg (27.0-33.4); MEAN CORPUSCULAR HGB CONC 33.6 g/dL (32.0-36.0); MEAN CORPUSCULAR VOLUME 86 fl (80-97); PLATELET COUNT 329 10^3/uL (150-450); RED BLOOD COUNT 3.17 10^6/uL (3.72-5.28); WHITE BLOOD COUNT 9.3 10^3/uL (4.0-10.5)
[2017-10-04 07:10] LABS: ALANINE AMINOTRANSFERASE 25 U/L (9-52); ALBUMIN 3.2 g/dL (3.5-5.0); ALKALINE PHOSPHATASE 61 U/L (38-126); ANION GAP 9 (5-19); ASPARTATE AMINO TRANSFERASE 19 U/L (14-36); BILIRUBIN,DIRECT 0.1 mg/dL (0.0-0.4); BILIRUBIN,TOTAL 0.4 mg/dL (0.2-1.3); BLOOD UREA NITROGEN 14 mg/dL (7-20); CALCIUM 8.8 mg/dL (8.4-10.2); CARBON DIOXIDE 26 mmol/L (22-30); CHLORIDE 105 mmol/L (98-107); GLUCOSE 116 mg/dL (75-110); SODIUM 139.9 mmol/L (137-145); TOTAL PROTEIN 5.9 g/dL (6.3-8.2)
[2017-10-04 07:40] LABS: ABSOLUTE LYMPHOCYTES# (MANUAL) 2.3 10^3/uL (0.5-4.7); ABSOLUTE MONOCYTES # (MANUAL) 0.6 10^3/uL (0.1-1.4); ABSOLUTE NEUTROPHILS# (MANUAL) 6.2 10^3/uL (1.7-8.2); BAND NEUTROPHILS % (MANUAL) 5 % (3-5); BASOPHILS % (MANUAL) 1 % (0-2); EOSINOPHILS % (MANUAL) 1 % (0-6); LYMPHOCYTES % (MANUAL) 25 % (13-45); METAMYELOCYTES % (MANUAL) 1 % (0); MONOCYTES % (MANUAL) 6 % (3-13); SEGMENTED NEUTROPHILS % (MAN) 61 % (42-78); TOTAL CELLS COUNTED 100
[2017-10-04 07:44] LABS: ANISOCYTOSIS SLIGHT; OVALOCYTES SLIGHT; PLATELET COMMENT ADEQUATE
[2017-10-04] MEDS: INSULIN LISPRO 100 UNIT/ML 3 ML VIAL SUBCUT PRN ×3 (13:00→22:27)
--- NOTE | 2017-10-04 17:43 | PDOC PROGRESS REPORT ---
Subjective Progress Note for:: 10/04/17 Subjective:: Pt states that she is feeling better. Reason For Visit: COMMUNITY ACQUIRED PNEUMONIA Physical Exam Vital Signs: Temp Pulse Resp BP Pulse Ox 99.0 F 84 18 174/62 H 99 10/04/17 16:38 10/04/17 16:38 10/04/17 16:38 10/04/17 16:38 10/04/17 16:38 Intake & Output 10/03/17 10/04/17 10/05/17 06:59 06:59 06:59 Intake Total 1875 1760 1200 Balance 1875 1760 1200 Weight 86 kg General appearance: PRESENT: no acute distress, well-developed, well-nourished Head exam: PRESENT: atraumatic, normocephalic Eye exam: PRESENT: conjunctiva pink, EOMI. ABSENT: scleral icterus Ear exam: PRESENT: normal external ear exam Mouth exam: PRESENT: moist, tongue midline Neck exam: ABSENT: carotid bruit, JVD, lymphadenopathy, thyromegaly Respiratory exam: PRESENT: decreased breath sounds, rhonchi Cardiovascular exam: PRESENT: RRR. ABSENT: diastolic murmur, rubs, systolic murmur Pulses: PRESENT: normal dorsalis pedis pul Vascular exam: PRESENT: normal capillary refill GI/Abdominal exam: PRESENT: normal bowel sounds, soft. ABSENT: distended, guarding, mass, organolmegaly, rebound, tenderness Rectal exam: PRESENT: deferred Extremities exam: PRESENT: full ROM. ABSENT: calf tenderness, clubbing, pedal edema Musculoskeletal exam: PRESENT: full ROM Neurological exam: PRESENT: alert, awake, oriented to person, oriented to place , oriented to time, oriented to situation, CN II-XII grossly intact. ABSENT: motor sensory deficit Psychiatric exam: PRESENT: appropriate affect, normal mood. ABSENT: homicidal ideation, suicidal ideation Skin exam: PRESENT: dry, intact, warm. ABSENT: cyanosis, rash Results Laboratory Results: 10/04/17 06:03 10/04/17 06:03 10/02/17 10/04/17 10/04/17 05:19 06:03 06:03 WBC 9.3 RBC 3.17 L Hgb 9.2 L Hct 27.3 L MCV 86 MCH 28.9 MCHC 33.6 RDW 15.0 H Plt Count 329 Seg Neutrophils % Not Reportable Lymphocytes % Not Reportable Monocytes % Not Reportable Eosinophils % Not Reportable Basophils % Not Reportable Absolute Neutrophils Not Reportable Absolute Lymphocytes Not Reportable Absolute Monocytes Not Reportable Absolute Eosinophils Not Reportable Absolute Basophils Not Reportable Sodium 139.9 Potassium 4.0 Chloride 105 Carbon Dioxide 26 Anion Gap 9 BUN 14 Creatinine 1.28 H Est GFR ( Amer) 48 L Est GFR (Non-Af Amer) 39 L Glucose 116 H Calcium 8.8 Transferrin 202 Total Bilirubin 0.4 AST 19 ALT 25 Alkaline Phosphatase 61 Total Protein 5.9 L Albumin 3.2 L 10/02/17 09:16 Stool - Stool - Final 10/02/17 09:16 Stool - Stool Stool Culture - Final NO SALMONELLA, SHIGELLA, CAMPYLOBACTER, OR E.COLI 0157 RECOVERED. NEGATIVE FOR SHIGA TOXINS 1&2. Impressions: Head MRI 09/30/17 00:00 IMPRESSION: ATROPHY AND CHRONIC MICRO-VASCULAR ISCHEMIC CHANGES. OTHERWISE NORMAL MRI OF THE BRAIN WITHOUT INTRAVENOUS GADOLINIUM CONTRAST. EVIDENCE OF ACUTE STROKE: NO. Chest X-Ray 09/30/17 08:13 IMPRESSION: Minimal right upper lobe airspace disease worrisome for early or developing pneumonia. Chest CT 10/01/17 00:00 IMPRESSION: CHRONIC SCARRING IN THE LUNG BASES. CONSOLIDATIONS IN THE RIGHT UPPER AND RIGHT LOWER LOBE CONSISTENT WITH PNEUMONIA. Assessment & Plan - Diagnosis (1) Pneumonia Qualifiers: Pneumonia type: due to unspecified organism Laterality: right Lung location: upper lobe of lung Qualified Code(s): J18.1 - Lobar pneumonia, unspecified organism Is this a current diagnosis for this admission?: Yes Plan: Secondary to H. Influenza: Will continue Zosyn. Pt is doing better. (2) Acute renal injury Is this a current diagnosis for this admission?: Yes Plan: Resolved. (3) Fever Qualifiers: Fever type: unspecified Qualified Code(s): R50.9 - Fever, unspecified Is this a current diagnosis for this admission?: Yes Plan: In setting of pneumonia community-acquired secondary to H. influenza: Will continue Zosyn. (4) Leukocytosis Qualifiers: Leukocytosis type: unspecified Qualified Code(s): D72.829 - Elevated white blood cell count, unspecified Is this a current diagnosis for this admission?: Yes Plan: In setting of community-acquired pneumonia Secondary to H. Influenza: Will continue Zosyn. (5) Nausea vomiting and diarrhea Is this a current diagnosis for this admission?: Yes Plan: C. difficile neg. (6) Diabetes mellitus type 2 in obese Is this a current diagnosis for this admission?: Yes Plan: Hemoglobin 7.5%. SSI. Will continue Lantus. (7) HTN (hypertension) Qualifiers: Hypertension type: essential hypertension Qualified Code(s): I10 - Essential (primary) hypertension Is this a current diagnosis for this admission?: Yes Plan: Will continue to monitor. Pt home medications are on hold. (8) Iron (Fe) deficiency anemia Qualifiers: Iron deficiency anemia type: chronic blood loss Qualified Code(s): D50.0 - Iron deficiency anemia secondary to blood loss (chronic) Is this a current diagnosis for this admission?: Yes Plan: Will continue Venofer. Pt hemooccult positive no acute GI bleed. (9) Debility Is this a current diagnosis for this admission?: Yes Plan: Will have pt continue to work with PT/OT. (10) Obesity (BMI 30.0-34.9) Is this a current diagnosis for this admission?: Yes Plan: Encourage dietary changes. (11) DVT prophylaxis Is this a current diagnosis for this admission?: Yes Plan: SCDs - Time Time Spent with patient: 15-24 minutes
[2017-10-04] MEDS: IRON SUCROSE COMPLEX INJ/PF 100 MG/5 ML SDV IV SCH (17:48)
[2017-10-04] MEDS: LIDOCAINE 5% (700 MG) TRANSDERMAL ADH..PATCH TP SCH (22:17)
[2017-10-04] MEDS ORDERED: HYDROCODONE BIT/HOMATROPINE SYRUP 5 ML UDCUP PO PRN (22:28)
[2017-10-04] MEDS ORDERED: HYDROCODONE BIT/HOMATROPINE 5-1.5 MG TABLET PO PRN (23:26)
[2017-10-05] MEDS: ACETAMINOPHEN 325 MG TABLET PO PRN (03:58)
[2017-10-05] MEDS: LANSOPRAZOLE 15 MG TAB.RAP.DR PO SCH (06:09)
[2017-10-05] MEDS: PIPERACILLIN SODIUM/TAZOBACTAM 3.375 GM in NORMAL SALINE 100 ML IV SCH (06:09)
--- NOTE | 2017-10-05 14:44 | PDOC DISCHARGE SUMMARY ---
General - Admit/Disc Date/PCP Admission Date/Primary Care Provider: 09/30/17 10:53 AZUCENA RIVERA MD Discharge Date: 10/05/17 - Discharge Diagnosis (1) Pneumonia Is this a current diagnosis for this admission?: Yes Summary: Secondary to H. Influenza: Pt has received 5 days of IV antibiotic. Will place pt on Cefuroxime Axetil 500mg PO BID for 5 days. (2) Acute renal injury Is this a current diagnosis for this admission?: Yes Summary: in setting of CKD Stage 2-3: Resolved. (3) Fever Is this a current diagnosis for this admission?: Yes Summary: Secondary to H. Influenza Pneumonia: Resolved. (4) Leukocytosis Is this a current diagnosis for this admission?: Yes Summary: Secondary to Pneumonia: Resolved. (5) Nausea vomiting and diarrhea Is this a current diagnosis for this admission?: Yes Summary: Resolved. (6) Diabetes mellitus type 2 in obese Is this a current diagnosis for this admission?: Yes Summary: Pt will continue on Metformin. (7) HTN (hypertension) Is this a current diagnosis for this admission?: Yes Summary: Pt will resume home medications. (8) Iron (Fe) deficiency anemia Is this a current diagnosis for this admission?: Yes Summary: Will place pt on Iron replacement. Pt will need to follow up with GI in 2-4 weeks for C-scope (9) Debility Is this a current diagnosis for this admission?: Yes Summary: Home health for PT/OT evaluation. Will place order for shower chair. (10) Obesity (BMI 30.0-34.9) Is this a current diagnosis for this admission?: Yes Summary: Encourage weight loss. - Additional Information Resuscitation Status: Full Code Discharge Diet: Diabetic Discharge Activity: Supervised Activity Prescriptions: Cefuroxime Axetil [Ceftin 500 mg Tablet] 1 tab PO BID #10 tablet Lidocaine [Lidoderm 5% (700 mg) Transdermal Patch] 1 patch TP QHS #10 adh..patch Home Medications: Aspirin [Ecotrin 81 mg EC Tablet] 81 mg PO DAILY 09/30/17 Docusate Sodium [Colace] 100 mg PO DAILY 09/30/17 Metformin HCl [Glucophage XR 500 mg Tablet] 500 mg PO BIDBS 09/30/17 Olmesartan/Hydrochlorothiazide [Benicar Hct 40-25 mg Tablet] 1 each PO DAILY Cefuroxime Axetil [Ceftin 500 mg Tablet] 1 tab PO BID #10 tablet 10/05/17 Lidocaine [Lidoderm 5% (700 mg) Transdermal Patch] 1 patch TP QHS #10 adh..patch 10/05/17 History of Present Illness Patient complains of: shortness of breath. History of Present Illness: MERCEDES ZAPATA is a 87 year old female presents with complaint of shortness of breath for approximately 2 weeks. Patient's son states that he had taken patient to urgent care where she was placed on Levaquin and completed treatment however did not demonstrate any improvement. Son also reports that 2 weeks ago the patient fell and hit her head and required stitches that was done by another local physician. Patient complains of severe headaches that have been affecting her ability to ambulate. Son reports the patient has had a CT of her head that did not demonstrate any abnormalities however she has not had an MRI of her head. Son and patient confirmed that patient severe headaches have been going on for the last 6 months. Son also reports that his mother does not use her walker as instructed however she is starting to use it more recently. Son also reports that patient has had fever at home along with productive cough. Patient reports that she coughs up thick white phlegm for the last 7-10 days. She also reports that she has had a poor appetite. Patient denies any chest pain, does admit to nausea and vomiting, and does admit to diarrhea. Hospital Course Hospital Course: Pt was admitted for shortness of breath. Pt was found to have H. Influenza Pneumonia. Pt was placed on Zosyn for 5 days and demonstrated significant improvement. Pt was placed on Cefuroxime Axetil 500mg PO BID for 5 additional days. Pt was found to have an Chronic Anemia with an Iron level for 14. Pt was placed on Venofer during hospitalization. Pt was transitioned to PO Iron. I have recommended that pt follow up with GI in 2-4 weeks for C-scope. Pt will go home with home health for PT/OT. Physical Exam Vital Signs: Temp Pulse Resp BP Pulse Ox 98.6 F 72 12 166/61 H 95 10/05/17 04:00 10/05/17 07:00 10/05/17 04:00 10/05/17 04:00 10/05/17 04:00 Intake & Output 10/04/17 10/05/17 10/06/17 06:59 06:59 06:59 Intake Total 1760 2009 Balance 1760 2010 Weight 83.9 kg General appearance: PRESENT: no acute distress, well-developed, well-nourished Head exam: PRESENT: atraumatic, normocephalic Eye exam: PRESENT: conjunctiva pink, EOMI. ABSENT: scleral icterus Ear exam: PRESENT: normal external ear exam Mouth exam: PRESENT: moist, tongue midline Neck exam: ABSENT: carotid bruit, JVD, lymphadenopathy, thyromegaly Respiratory exam: PRESENT: decreased breath sounds, rhonchi Cardiovascular exam: PRESENT: RRR. ABSENT: diastolic murmur, rubs, systolic murmur Pulses: PRESENT: normal dorsalis pedis pul Vascular exam: PRESENT: normal capillary refill GI/Abdominal exam: PRESENT: normal bowel sounds, soft. ABSENT: distended, guarding, mass, organolmegaly, rebound, tenderness Rectal exam: PRESENT: deferred Extremities exam: PRESENT: full ROM. ABSENT: calf tenderness, clubbing, pedal edema Neurological exam: PRESENT: alert, awake, oriented to person, oriented to place , oriented to time, oriented to situation, CN II-XII grossly intact. ABSENT: motor sensory deficit Psychiatric exam: PRESENT: appropriate affect, normal mood. ABSENT: homicidal ideation, suicidal ideation Skin exam: PRESENT: dry, intact, warm. ABSENT: cyanosis, rash Results Laboratory Results: 10/04/17 06:03 10/04/17 06:03 Impressions: Head MRI 09/30/17 00:00 IMPRESSION: ATROPHY AND CHRONIC MICRO-VASCULAR ISCHEMIC CHANGES. OTHERWISE NORMAL MRI OF THE BRAIN WITHOUT INTRAVENOUS GADOLINIUM CONTRAST. EVIDENCE OF ACUTE STROKE: NO. Chest X-Ray 09/30/17 08:13 IMPRESSION: Minimal right upper lobe airspace disease worrisome for early or developing pneumonia. Chest CT 10/01/17 00:00 IMPRESSION: CHRONIC SCARRING IN THE LUNG BASES. CONSOLIDATIONS IN THE RIGHT UPPER AND RIGHT LOWER LOBE CONSISTENT WITH PNEUMONIA. Plan Time Spent: Greater than 30 Minutes
[2017-10-05 17:45] VITALS: BP 150/62
== END 2017-10-05 15:15 | disposition home health service (06) | DRG 194 ==
LOC: ER 07:54 → EH 10:53 → 4N 23:47
PROVIDERS: ADMIT Emergency Medicine; ATTEND Emergency Medicine
DX: J14 Pneumonia due to Hemophilus influenzae (principal); N17.9 Acute kidney failure, unspecified; E11.9 Type 2 diabetes mellitus without complications; D50.0 Iron deficiency anemia secondary to blood loss (chronic); I10 Essential (primary) hypertension; E66.9 Obesity, unspecified; Z68.30 Body mass index [BMI] 30.0-30.9, adult; Z88.8 Allergy status to other drugs, medicaments and biological substances; Z79.82 Long term (current) use of aspirin; Z79.84 Long term (current) use of oral hypoglycemic drugs; Z79.899 Other long term (current) drug therapy
CPT/HCPCS: 36415; 70551; 71045; 71250; 80053; 81001; 82272; 82607; 82728; 82746; 82803; 82962; 83036; 83540; 83550; 83605; 83735; 84439; 84443; 84466; 85025; 85045; 85610; 87040; 87045; 87070; 87077; 87086; 87205; 87493; 87804; 89055; 93005; 93010; 94640; 96361; 96365; 96375; 99285; G8978-GP; G8979-GP; G8987-GO; G8988-GO; G8989-GO; J1644; J1756; J1815; J1956; J2405; J2543; J7030; J7120; J7620